=== PATIENT | male | born 1960 | race Two or more races ===

== ENCOUNTER 2022-08-08 23:18 | Inpatient (IN) | payer OTHER ==
[~2022-08-08] VITALS: Ht 165.1 cm; Wt 97.1 kg
--- NOTE | 2022-08-08 23:20 | NUR ---
BLOOD CX, BLOOD WORK COLLECTED AND SENT TO LAB
--- NOTE | 2022-08-08 23:20 | NUR ---
BLOOD CX, BLOOD WORK COLLECTED AND SENT TO LAB
--- NOTE | 2022-08-08 23:22 | NUR ---
Ramon oreilly in [facility] - 08/08/22 at 2342 by BENNIE [id number]
--- NOTE | 2022-08-08 23:23 | NUR ---
[id number]
--- NOTE | 2022-08-08 23:24 | NUR ---
RT pt placed on BIPAP per MD orders on settings IPAP 16, 8 EPAP, back up rate 16, FIO2 50%.
--- NOTE | 2022-08-08 23:25 | NUR ---
COVID, MRSA SWABS COLLECTED AND SENT TO LAB
--- NOTE | 2022-08-08 23:25 | NUR ---
EKG DONE AT BEDSIDE
--- NOTE | 2022-08-08 23:25 | NUR ---
JUANA 37 FROM HOME FOR SEVERE SOB, SATTING AT 77% ON R/A. ARRIVED ON CPAP. RECEIVED 9 NITRO SPRAY PRODUCTION GEAR CUTTER. PATIENT IS ALERT, BHUTANESE SPEAKING. VERY COOPERATIVE. CAME WITH IV CANNULA ON BILATERAL HANDS(LEFT HAND G20, RIGHT HAND G18).
[2022-08-08] MEDS ORDERED: FUROSEMIDE 40 MG/4 ML VIAL IV ONE (23:30)
--- NOTE | 2022-08-08 23:30 | NUR ---
URINE SPECIMEN COLLECTED AND SENT TO LAB
[2022-08-08] MEDS ORDERED: FUROSEMIDE 40 MG/4 ML VIAL ONE (23:31)
[2022-08-08] MEDS ORDERED: LIDOCAINE 2% JEL UROJET 10 ML MM ONE (23:32)
[2022-08-08 23:36] LABS: BASOPHILS # (AUTO) 0.2 K/uL (0.0-0.2); BASOPHILS % (AUTO) 1.2 % (0.0-2.0); EOSINOPHILS % (AUTO) 2.4 % (0.0-6.0); HEMATOCRIT 39 % (39-51); HEMOGLOBIN 12.6 g/dL (13.5-17.5); LYMPHOCYTES # (AUTO) 8.3 K/uL (0.8-4.8); LYMPHOCYTES % (AUTO) 50.1 % (20.0-44.0); MEAN CORPUSCULAR HGB CONC 32 g/dl (31.0-36.0); MEAN CORPUSCULAR VOLUME 88 fL (80-96); MONOCYTES # (AUTO) 0.6 K/uL (0.1-1.30); MONOCYTES % (AUTO) 3.6 % (2.0-12.0); NEUTROPHILS # (AUTO) 7.1 K/uL (1.8-8.9); NEUTROPHILS % (AUTO) 42.7 % (43.0-81.0); PLATELET COUNT (AUTO) 420 K/uL (150-450); RED BLOOD CELL COUNT(AUTO) 4.42 MIL/uL (4.5-6.0); WHITE BLOOD COUNT (AUTO) 16.7 K/uL (4.3-11.0)
--- NOTE | 2022-08-08 23:43 | NUR ---
XR AT BEDSIDE
--- NOTE | 2022-08-08 23:43 | NUR ---
IFC F16 INSERTED, ATTACHED TO UROBAG
[2022-08-09 00:01] LABS: CALCIUM, SERUM 7.9 mg/dL (8.5-10.1); CARBON DIOXIDE 20 mmol/L (21-32); CHLORIDE 102 mmol/L (98-107); CREATININE 3.3 mg/dL (0.6-1.3); POTASSIUM 4.3 mmol/L (3.5-5.1); SODIUM SERUM 134 mmol/L (136-145); UREA NITROGEN, BLOOD 25 mg/dL (7-18)
[2022-08-09 00:04] LABS: ALANINE AMINOTRANSFERASE < 6 U/L (12-78); ALBUMIN 2.7 g/dL (3.4-5.0); ALKALINE PHOSPHATASE 131 U/L (46-116); ASPARTATE AMINOTRANSFERASE 78 U/L (15-37); BILIRUBIN,TOTAL 0.4 mg/dL (0.2-1.0); GLUCOSE 581 mg/dL (74-106); TOTAL PROTEIN, SERUM 6.4 g/dL (6.4-8.2)
--- NOTE | 2022-08-09 00:27 | NUR ---
TWAN Gleason MD MADE AWARE
[2022-08-09] MEDS ORDERED: INSULIN REGULAR, HUMAN 100 UNIT/ML 10 ML VIAL SQ ONE (00:30)
[2022-08-09] MEDS ORDERED: ASPIRIN 325 MG TABLET PO ONE (00:30)
[2022-08-09 00:47] LABS: ABG PCO2 41.7 mmHg (35.0-45.0); ABG PH 7.266 (7.350-7.450); ABG PO2 104.4 mmHg (75.0-100.0); COHb 0.3 % (0.5-1.5); MetHb 0.3 % (0.0-1.5); O2Hb 96.6 % (94.0-97.0); SITE, ABG Right Brachial
--- NOTE | 2022-08-09 02:11 | NUR ---
MISAEL Teague FOR ADMITTING ORDERS TO ICU, AWAITING RESPONSE
--- NOTE | 2022-08-09 03:13 | NUR ---
MESSAGE CARLINE Teague FOR ADMITTING ORDERS FOR ICU, STILL NOT RESPONDING
--- NOTE | 2022-08-09 04:13 | NUR ---
EPIC PAGE DONE FOR CARLINE URBINA FOR ADMITTING ORDER FOR ICU
--- NOTE | 2022-08-09 04:13 | NUR ---
PAGEYolande OSCAR NP TO UPDATE HER ABOUT THE PATIENT'S CONDITION PATIENT IS NO LONGER ON BIPAP.
--- NOTE | 2022-08-09 05:05 | NUR ---
SPOKE TO CARLITOS OSCAR NP AND UPDATED HER REGARDING PATIENT'S CONDITION. PATIENT IS CURRENTLY ON R/A AND SATTING 94-95%. EDSON WILL DOWN GRADE THE PT TO TELE. SITE AUDITOR MADE AWARE.
[2022-08-09] MEDS ORDERED: DEXTROSE 50%-WATER 50 ML DISP.SYRIN IV PRN (05:30)
[2022-08-09] MEDS ORDERED: ONDANSETRON HCL/PF 4 MG/2 ML VIAL IVP PRN (05:30)
[2022-08-09] MEDS ORDERED: ACETAMINOPHEN 325 MG TABLET PO PRN (05:30)
[2022-08-09] MEDS ORDERED: PIPERACILLIN /TAZOBACTAM 3.375 G in IV D5W 50 ML IV SCH (06:00)
[2022-08-09] MEDS ORDERED: PIPERACILLIN /TAZOBACTAM 3.375 G VIAL IV ONE (06:03)
[2022-08-09 06:11] LABS: BASOPHILS # (AUTO) 0.1 K/uL (0.0-0.2); BASOPHILS % (AUTO) 1.1 % (0.0-2.0); EOSINOPHILS % (AUTO) 0.5 % (0.0-6.0); HEMATOCRIT 33 % (39-51); HEMOGLOBIN 11.2 g/dL (13.5-17.5); LYMPHOCYTES # (AUTO) 1.4 K/uL (0.8-4.8); LYMPHOCYTES % (AUTO) 15.1 % (20.0-44.0); MEAN CORPUSCULAR HGB CONC 34 g/dl (31.0-36.0); MEAN CORPUSCULAR VOLUME 83 fL (80-96); MONOCYTES # (AUTO) 0.4 K/uL (0.1-1.30); NEUTROPHILS # (AUTO) 7.1 K/uL (1.8-8.9); NEUTROPHILS % (AUTO) 79.3 % (43.0-81.0); PLATELET COUNT (AUTO) 190 K/uL (150-450); RED BLOOD CELL COUNT(AUTO) 3.96 MIL/uL (4.5-6.0)
[2022-08-09] MEDS: VANCOMYCIN 1 GM in IV D5W 250 ML IV PRN ×2 (06:45→06:53)
[2022-08-09] MEDS ORDERED: VANCOMYCIN 1 GM VIAL ONE (06:49)
[2022-08-09 07:00] LABS: CALCIUM, SERUM 8.5 mg/dL (8.5-10.1); CREATININE 3.1 mg/dL (0.6-1.3); MAGNESIUM 2.1 mg/dL (1.8-2.4); PHOSPHORUS 3.8 mg/dL (2.5-4.9); POTASSIUM 4.4 mmol/L (3.5-5.1)
[2022-08-09 07:15] LABS: BAND % (MANUAL) 2 % (0.0-5.0); LYMPHOCYTES % (MANUAL) 20 % (16-48); MONOCYTES % (MANUAL) 6 % (0-11.0); NEUTROPHILS % (MANUAL) 72 (42-76)
--- NOTE | 2022-08-09 07:55 | NUR ---
REPORT GIVEN TO HAILEE GIBSON. AWAITING TRANSFER TO FLOOR.
[2022-08-09 08:25] VITALS: BP 115/96
--- NOTE | 2022-08-09 08:31 | NUR ---
pt transferred to tele floor with acls protocols in place
[2022-08-09] MEDS ORDERED: HEPARIN SODIUM, PORCINE 5000 UNITS/1 ML VIAL SQ SCH (09:00)
[2022-08-09 09:24] LABS: ABG BASE EXCESS -4.6 mmol/L; ABG PCO2 32.9 mmHg (35.0-45.0); ABG PH 7.392 (7.350-7.450); ABG PO2 68.9 mmHg (75.0-100.0); AaDO2 41.4 mmHg; MetHb 0.1 % (0.0-1.5); O2Hb 93.9 % (94.0-97.0); SITE, ABG Left Radial; VENT MODE, BG RA 21%
--- NOTE | 2022-08-09 10:05 | NUR ---
seen by DR fairchild reviewed ABG with no new order, O2 sat on room air 96%
--- NOTE | 2022-08-09 10:15 | NUR ---
rn notes: left message to DR Young troponin [id number],awaiting for orders
[2022-08-09] MEDS: BLOOD SUGAR DIAGNOSTIC 1 EACH STRIP IN SCH ×4 (10:32→22:03)
[2022-08-09 12:00] VITALS: BP 127/80
[2022-08-09] MEDS: ZOSYN IVPB 3.375 G in IV D5W 50ml IV SCH ×2 (12:12→17:47)
[2022-08-09] MEDS ORDERED: HEPARIN SODIUM, PORCINE 5000 UNITS/1 ML VIAL IV ONE (12:30)
[2022-08-09] MEDS: HEPARIN INFUSION/D5W 500 ML IV PRN (12:30)
[2022-08-09] MEDS: INSULIN REGULAR, HUMAN 100 UNIT/ML 3 ML VIAL SQ PRN ×3 (12:43→23:18)
[2022-08-09 16:00] VITALS: BP 124/79
--- NOTE | 2022-08-09 16:11 | NUR ---
RN NOTE LAB WAS CALLED AND NOTIFIED URINE WAS READY FOR PATTERN HANGER.
[2022-08-09 16:46] LABS: BILIRUBIN,URINE NEGATIVE (NEGATIVE); COLOR,URINE YELLOW (YELLOW); LEUKOCYTE ESTERASE ,URINE NEGATIVE (NEGATIVE); NITRITE, URINE NEGATIVE (NEGATIVE); PH,URINE 6.5 (5.0-8.0); PROTEIN,URINE 3+ mg/dl (NEGATIVE); UGLUCOSE 3+ mg/dL (NEGATIVE); UROBILINOGEN,URINE 0.2 EU/dL (0.2)
[2022-08-09 17:06] LABS: BACTERIA,URINE None seen /HPF (None Seen); RBC,URINE 51-80 /HPF (0-2); SQUAMOUS EPITHELIAL CELL,UR 0-2 /HPF (None Seen); WBC,URINE 0-2 /HPF (0-3)
--- NOTE | 2022-08-09 19:09 | NUR ---
RN CLOSING NOTES PATIENT IN BED, RESTING, NO DISCOMFORT OR SHORTNESS OF BREATH. IV SITE ON RIGHT HAND MARVA 20, PATENT AND FLUSHING WELL, ALL MEDICATIONS WERE GIVEN PRESCRIBED, HEAD OF BED ELEVATED, PATIENT TURNED AND REPOSITIONED EVERY TWO HOURS. OLIVEIRA CATHETER IN PLACE, URINE CLEAR AND YELLOW, NO S/SX OF HYPO/HYPERGLYCEMIA NOTED DURING SHIFT. BED IN LOWEST AND LOCKED POSITION, SIDE RAILS X3 UP, SAFETY MEASURES IMPLEMENTED. WILL ENDORSE TO HOE RUNNER NURSE.
--- NOTE | 2022-08-09 19:40 | NUR ---
MANAGER MARKET RESEARCH OPENING NOTES RECEIVED PATIENT IN BED AWAKE, ALERT AND ORIENTED. A/O X 4. IV SITE ON RIGHT HAND #20G WITH HEPARIN 1600UNIT/HR RUNNING 32ML/HR AND LEFT HAND #20G, SL. HEAD OF BED ELEVATED.OLIVEIRA CATHETER IN PLACE, URINE CLEAR AND YELLOW. SAFETY PRECAUTIONS IN PLACE WITH BED IN LOWEST AND LOCKED POSITION, SIDE RAILS X3 UP. WILL CONTINUE WITH THE PLAN OF CARE.
[2022-08-09 19:56] LABS: CREATININE, URINE 61.2 MG/DL (30.0-125.0)
[2022-08-09 20:00] VITALS: BP 148/86
[2022-08-09] MEDS: CEFTRIAXONE 1 G in IV D5W 50 ML IV SCH (21:56)
[2022-08-09] MEDS: ATORVASTATIN 40 MG TABLET PO SCH (22:03)
[2022-08-10] VITALS: BP 147/99
[2022-08-10 04:00] VITALS: BP 144/92
[2022-08-10] MEDS: HEPARIN INFUSION/D5W 500 ML IV PRN ×2 (04:59→21:06)
[2022-08-10 06:16] LABS: CREATININE 3.1 mg/dL (0.6-1.3); MAGNESIUM 1.9 mg/dL (1.8-2.4); PHOSPHORUS 4.3 mg/dL (2.5-4.9); POTASSIUM 4.3 mmol/L (3.5-5.1)
[2022-08-10 07:06] LABS: BASOPHILS # (AUTO) 0.1 K/uL (0.0-0.2); BASOPHILS % (AUTO) 2.1 % (0.0-2.0); EOSINOPHILS % (AUTO) 2.1 % (0.0-6.0); HEMATOCRIT 32 % (39-51); HEMOGLOBIN 11.2 g/dL (13.5-17.5); LYMPHOCYTES # (AUTO) 1.3 K/uL (0.8-4.8); LYMPHOCYTES % (AUTO) 18.6 % (20.0-44.0); MEAN CORPUSCULAR HGB CONC 35 g/dl (31.0-36.0); MEAN CORPUSCULAR VOLUME 83 fL (80-96); MONOCYTES # (AUTO) 0.4 K/uL (0.1-1.30); MONOCYTES % (AUTO) 5.2 % (2.0-12.0); PLATELET COUNT (AUTO) 160 K/uL (150-450)
[2022-08-10 08:00] VITALS: BP 150/78
[2022-08-10] MEDS: BLOOD SUGAR DIAGNOSTIC 1 EACH STRIP IN SCH ×4 (08:01→22:25)
[2022-08-10] MEDS: INSULIN REGULAR, HUMAN 100 UNIT/ML 3 ML VIAL SQ PRN ×4 (08:03→22:27)
[2022-08-10 12:00] VITALS: BP 138/74
[2022-08-10] MEDS ORDERED: INSU100I34 SQ (12:03)
[2022-08-10] MEDS ORDERED: ERGO500093 PO (12:03)
[2022-08-10] MEDS ORDERED: INSU100I26 SQ (12:03)
[2022-08-10] MEDS ORDERED: ATOR40TA PO (12:03)
[2022-08-10] MEDS ORDERED: SERT25TA5 PO (12:03)
[2022-08-10] MEDS ORDERED: METO-358 PO (12:03)
[2022-08-10] MEDS ORDERED: ASPI-1420 PO (12:03)
--- NOTE | 2022-08-10 12:44 | NUR ---
RN NOTE DAUGHTER WAS CALLED TO INFORM THAT THE PATIENT NEEDS TO SIGN A CONSENT FORM FOR CARDIAC CATH. PATIENT UNDERSTOOD AND SIGNED THE FORM.
[2022-08-10 15:33] LABS: EOSINOPHILS % (MANUAL) 3 % (0-4); LYMPHOCYTES % (MANUAL) 17 % (16-48); MONOCYTES % (MANUAL) 4 % (0-11.0); NEUTROPHILS % (MANUAL) 76 (42-76)
--- NOTE | 2022-08-10 15:58 | NUR ---
RN NOTES HOLD CARDIAC CATH , CONTINUE HEPARIN PER ROVING CARRIER
[2022-08-10 16:00] VITALS: BP 140/72
[2022-08-10] MEDS ORDERED: FUROSEMIDE 40 MG/4 ML VIAL IV ONE (16:00)
[2022-08-10] MEDS: METOPROLOL TARTRATE 25 MG TABLET PO SCH ×2 (17:23→21:38)
[2022-08-10] MEDS: ASPIRIN EC 325 MG TABLET.DR PO SCH (17:25)
[2022-08-10] MEDS ORDERED: VANCOMYCIN 1.25 GM in IV D5W 250 ML IV SCH (19:00)
--- NOTE | 2022-08-10 19:03 | NUR ---
RN CLOSING NOTES PATIENT IN BED ALERT AND ORIENTED X4, NO DISCOMFORT OR SHORTNESS OF BREATH. IV SITE ON RIGHT HAND RUNNING HEPARIN DRIP. L HAND SL MARVA 20 PATENT AND FLUSHING WELL, ALL MEDICATIONS WERE GIVEN PRESCRIBED, HEAD OF BED ELEVATED, PATIENT TURNED AND REPOSITIONED EVERY TWO HOURS. OLIVEIRA CATHETER IN PLACE, URINE CLEAR AND YELLOW, NO S/SX OF HYPO/HYPERGLYCEMIA NOTED DURING SHIFT. BED IN LOWEST AND LOCKED POSITION, SIDE RAILS X3 UP, SAFETY MEASURES IMPLEMENTED. WILL ENDORSE TO ORE STORAGE DRIER NURSE.
[2022-08-10 19:50] LABS: HEMOGLOBIN 11.2 g/dL (13.5-17.5)
[2022-08-10 20:00] VITALS: BP 157/94
--- NOTE | 2022-08-10 20:10 | NUR ---
LANDSCAPE FOREMAN OPENING NOTES RECEIVED PATIENT IN BED AWAKE. PT ALERT AND ORIENTED X 4, ABLE TO MAKE NEEDS KNOWN, MALTESE SPEAKING. NO RESPIRATORY DISTRESS NOTED AT THIS TIME. NO C/O PAIN OR DISCOMFORT. IV SITE ON RIGHT HAND #20G WITH HEPARIN 1600 UNIT/HR RUNNING 32ML/HR AND LEFT HAND #20G, SL. HEAD OF BED ELEVATED.OLIVEIRA CATHETER IN PLACE, URINE CLEAR AND YELLOW. SAFETY PRECAUTIONS IN PLACE: BED LOCKED, IN LOWEST POSITION, SIDE RAILS UP X3. WILL CONTINUE TO MONITOR PT.
--- NOTE | 2022-08-10 21:06 | NUR ---
SCAN BAG OF HEPARIN AT THIS TIME, INCREASED BY 200U ACCORDING TO THE LAST PTT AT 11:15AM THAT WAS NOT FOLLOW, BLOOD DRAW FOR NEXT PTT EARLIER, AWAITING FOR RESULTS.
--- NOTE | 2022-08-10 21:06 | NUR ---
RN NOTE PT'S PTT IS 42.1, INCREASED HEPARIN DRIP TO 200 U/HR PER PROTOCOL. AWAITING FOR LAB RESULT FOR NEW PTT.
[2022-08-10] MEDS: CEFTRIAXONE 1 G in IV D5W 50 ML IV SCH (21:34)
[2022-08-10] MEDS ORDERED: ONDANSETRON HCL/PF 4 MG/2 ML VIAL ONE (21:35)
[2022-08-10] MEDS ORDERED: KETOROLAC TROMETHAMINE INJ 30 MG/ML VIAL ONE (21:36)
[2022-08-10] MEDS ORDERED: MORPHINE SULFATE INJ 4 MG/ML DISP.SYRIN ONE (21:36)
[2022-08-10] MEDS: ATORVASTATIN 40 MG TABLET PO SCH (21:38)
[2022-08-10] MEDS ORDERED: HEPARIN SODIUM, PORCINE 5000 UNITS/1 ML VIAL IV ONE (22:00)
--- NOTE | 2022-08-10 22:15 | NUR ---
RN NOTE NEW PTT RESULT IS 33.8. 6000 U OF HEPARIN BOLUS IVP ADMINISTERED TO PT PER PROTOCOL. HEPARIN INCREASED BY 100U PER PHARMACIST REQUEST. NOW 1900U OF HEPARIN IS INFUSING. NEXT PTT IS ORDERED FOR 0400, IN 6 HRS.
--- NOTE | 2022-08-10 22:15 | NUR ---
RECEIVED RESULTS FROM LAB FOR PTT AT THIS TIME, ACCORDING TO PROTOCOL, GIVE 6000 U BOLUS IVP, AND INCREASED BY 300U, SINCE WE ALREADY INCREASED EARLIER BY 200U WHEN WE SCANNED THE BAG, SPOKE WITH RAHEEL PHARMACIST FROM [place] AND PER HER TO INCREASE 100U MORE, WILL BE INFUSING AT 1900U AND DO PTT IN 6HRS, ORDER NOTED AND CARRIED OUT.
[2022-08-11] VITALS: BP 142/92
[2022-08-11 04:00] VITALS: BP 149/84
[2022-08-11 04:27] LABS: BASOPHILS # (AUTO) 0.1 K/uL (0.0-0.2); BASOPHILS % (AUTO) 1.1 % (0.0-2.0); EOSINOPHILS % (AUTO) 2.7 % (0.0-6.0); HEMATOCRIT 33 % (39-51); HEMOGLOBIN 11.3 g/dL (13.5-17.5); LYMPHOCYTES # (AUTO) 1.4 K/uL (0.8-4.8); LYMPHOCYTES % (AUTO) 20.6 % (20.0-44.0); MEAN CORPUSCULAR HGB CONC 35 g/dl (31.0-36.0); MEAN CORPUSCULAR VOLUME 83 fL (80-96); MONOCYTES # (AUTO) 0.2 K/uL (0.1-1.30); MONOCYTES % (AUTO) 3.5 % (2.0-12.0); NEUTROPHILS # (AUTO) 4.9 K/uL (1.8-8.9); NEUTROPHILS % (AUTO) 72.1 % (43.0-81.0); PLATELET COUNT (AUTO) 171 K/uL (150-450); RED BLOOD CELL COUNT(AUTO) 3.94 MIL/uL (4.5-6.0); WHITE BLOOD COUNT (AUTO) 6.8 K/uL (4.3-11.0)
[2022-08-11 04:40] LABS: CALCIUM, SERUM 7.9 mg/dL (8.5-10.1); MAGNESIUM 1.8 mg/dL (1.8-2.4)
--- NOTE | 2022-08-11 05:40 | NUR ---
RN NOTE RECEIVED PTT LEVEL FROM NYA IN LAB. PT'S PTT IS 96.6. WILL HOLD HEPARIN DRIP FOR 60 MIN, FROM 0540 TO 0640 PER PROTOCOL.
--- NOTE | 2022-08-11 06:40 | NUR ---
RN CLOSING NOTE PT RESTING IN BED. PT'S HEPARIN DRIP HELD FROM 0540 TO 0640. NOW HEPARIN IS DECREASED BY 300 UNITS FROM 1900 TO 1600 PER PROTOCOL D/T PTT LEVEL: 96.6. NEXT PTT ORDERED FOR 1230. PT LEFT IN STABLE CONDITION. NO RESPIRATORY DISTRESS NOTED. IV ACCESS TO RIGHT HAND RUNNING HEPARIN DRIP AT 1600 UNITS/HR, INFUSING WELL. SAFETY MEASURES MAINTAINED. WILL ENDORSE PT TO AM SHIFT NURSE FOR KAT.
--- NOTE | 2022-08-11 07:00 | NUR ---
RN OPENING NOTES RECEIVED PATIENT IN BED AWAKE, ALERT, ORIENTED X 4, ABLE TO MAKE NEEDS KNOWN, SAMI SPEAKING. NO RESPIRATORY DISTRESS NOTED AT THIS TIME. NO COMPLAINS PAIN, DISCOMFORT, DISTRESS. IV SITE ON RIGHT HAND #20G WITH HEPARIN 1600 UNIT/HR RUNNING 32ML/HR AND LEFT HAND #20G, SL. HEAD OF BED ELEVATED.OLIVEIRA CATHETER IN PLACE, URINE CLEAR AND YELLOW. SAFETY PRECAUTIONS IN PLACE, BED LOCKED AND IN LOWEST POSITION, SIDE RAILS UP X3. WILL CONTINUE TO MONITOR.
[2022-08-11] MEDS: BLOOD SUGAR DIAGNOSTIC 1 EACH STRIP IN SCH ×4 (07:42→22:06)
[2022-08-11 08:00] VITALS: BP 146/87
[2022-08-11] MEDS: METOPROLOL TARTRATE 25 MG TABLET PO SCH ×2 (08:25→21:47)
[2022-08-11] MEDS: ASPIRIN EC 325 MG TABLET.DR PO SCH (08:25)
[2022-08-11] MEDS: INSULIN REGULAR, HUMAN 100 UNIT/ML 3 ML VIAL SQ PRN ×4 (08:30→22:07)
[2022-08-11] MEDS: HEPARIN INFUSION/D5W 500 ML IV PRN (11:47)
[2022-08-11 12:00] VITALS: BP 138/80
[2022-08-11 16:00] VITALS: BP 130/86
--- NOTE | 2022-08-11 18:58 | NUR ---
RN CLOSING NOTES PATIENT ALERT, ORIENTED X4, ON NS 2L/MIN 02 AT 96%. AMBULATORY WITH ASSIST, ALL MEDICATIONS GIVEN ORDERED, PATIENT IS ON HEPARIN DRIP AT 1800 UNITS PER HOUR, NEXT PTT AT 1900. NO SOB, NO ACUTE DISTRESS NOTED, CATHETER IN PLACE WITH YELLOW AND CLEAR URINE. CALL LIGHT WITHIN REACH, PATIENT REPOSITIONED EVERY 2 HOURS, SAFETY MEASURES IMPLEMENTED, HEAD OF BED ELEVATED, BED IN LOWEST AND LOCKED POSITION, SIDE RAILS UP X2. WILL GIVE REPORT TO RUBBER BELT SPLICER NURSE FOR CONTINUING OF CARE
--- NOTE | 2022-08-11 19:40 | NUR ---
RN OPENING NOTES RECEIVED PATIENT IN BED, AWAKE, ALERT, ORIENTED X4 AND VERBALLY RESPONSIVE. WOLOF SPEAKING. ON O2 AT 2L/MIN VIA N/C AND PT TOLERATED WELL. FAMILY AT BEDSIDE. AMBULATORY WITH ASSIST. IV ACCESS ON RT HAND #22G AND LT HAND #20G INTACT AND PATENT. NO S/S OF INFILTRATIONS. ON HEPARIN DRIP AT 1800U/HR. NO C/O PAIN OR DISCOMFORT. NO ACUTE DISTRESS. OLIVEIRA CATHETER IN PLACE. DRAINING BY GRAVITY. NOTED YELLOWISH/CLEAR URINE. ALL SAFETY MEASURES IN PLACE. HEAD OF BED ELEVATED, BED IN LOWEST POSITION AND LOCKED. SIDE RAILS UP X2. PLACE CALL LIGHT WITH IN REACH. WILL CONTINUE TO MONITOR
[2022-08-11 20:00] VITALS: BP 146/85
--- NOTE | 2022-08-11 20:35 | NUR ---
RN NOTES: PTT LEVEL 49.4. NO CHANGES. NEXT PTT WILL BE TOMORROW AT 1900
[2022-08-11] MEDS: CEFTRIAXONE 1 G in IV D5W 50 ML IV SCH (20:53)
--- NOTE | 2022-08-11 21:15 | NUR ---
RN NOTES: NOTED PT HAS BLOOD TINGED URINE ON THE OLIVEIRA CATHETER. PT IS ON HEPARIN DRIP. NOTIFIED DR. FUENTES. ORDER- IF BLEEDING INCREASED STOP HEPARIN DRIP AND STAT CBC. NOTED AND CARRIED OUT. WILL CONTINUE TO MONITOR
[2022-08-11] MEDS: ATORVASTATIN 40 MG TABLET PO SCH (21:46)
--- NOTE | 2022-08-11 22:13 | NUR ---
RN NOTES: PT'S BLOOD SUGAR 309. 8 UNITS OF REGULAR INSULIN GIVEN. NO S/S OF HYPER/HYPOGLYCEMIA. WILL CONTINUE TO MONITOR
[2022-08-12] VITALS: BP 154/90
[2022-08-12] MEDS: HEPARIN INFUSION/D5W 500 ML IV PRN ×2 (02:15→16:25)
[2022-08-12 04:00] VITALS: BP 148/83
--- NOTE | 2022-08-12 06:43 | NUR ---
RN CLOSING NOTES PATIENT IN BED, AWAKE, ALERT, ORIENTED X4 AND VERBALLY RESPONSIVE. MALAY SPEAKING. ON O2 AT 2L/MIN VIA N/C AND PT TOLERATED WELL. AMBULATORY WITH ASSIST. IV ACCESS ON RT HAND #22G AND LT HAND #20G INTACT AND PATENT. NO S/S OF INFILTRATIONS. RUNNING HEPARIN DRIP AT 1800U/HR. NO C/O PAIN OR DISCOMFORT. NO ACUTE DISTRESS. OLIVEIRA CATHETER IN PLACE. DRAINING BY GRAVITY. STILL NOTED SLIGHT BLOOD TINGED URINE. WILL CONTINUE TO MONITOR FOR ANY CHANGES. ALL DUE MEDS GIVEN ORDERED. ALL SAFETY MEASURES IN PLACE. HEAD OF BED ELEVATED, BED IN LOWEST POSITION AND LOCKED. SIDE RAILS UP X2. PLACE CALL LIGHT WITH IN REACH. WILL ENDORSE TO MORNING SHIFT NURSE.
[2022-08-12 07:07] LABS: BASOPHILS # (AUTO) 0.1 K/uL (0.0-0.2); BASOPHILS % (AUTO) 0.9 % (0.0-2.0); HEMATOCRIT 33 % (39-51); HEMOGLOBIN 11.3 g/dL (13.5-17.5); LYMPHOCYTES # (AUTO) 1.2 K/uL (0.8-4.8); LYMPHOCYTES % (AUTO) 21.3 % (20.0-44.0); MEAN CORPUSCULAR HGB CONC 34 g/dl (31.0-36.0); MEAN CORPUSCULAR VOLUME 83 fL (80-96); MONOCYTES # (AUTO) 0.2 K/uL (0.1-1.30); MONOCYTES % (AUTO) 3.9 % (2.0-12.0); NEUTROPHILS % (AUTO) 70.9 % (43.0-81.0); PLATELET COUNT (AUTO) 159 K/uL (150-450); RED BLOOD CELL COUNT(AUTO) 3.95 MIL/uL (4.5-6.0); WHITE BLOOD COUNT (AUTO) 5.7 K/uL (4.3-11.0)
--- NOTE | 2022-08-12 07:15 | NUR ---
RN OPENING NOTES RECEIVED PATIENT IN BED, AWAKE, ALERT, ORIENTED X4 AND VERBALLY RESPONSIVE. [place] SPEAKING. ON O2 AT 2L/MIN VIA N/C AND PT TOLERATED WELL. FAMILY AT BEDSIDE. AMBULATORY WITH ASSIST. IV ACCESS ON RT HAND #22G AND LT HAND #20G INTACT AND PATENT. NO S/S OF INFILTRATIONS. ON HEPARIN DRIP AT 1800U/HR. NO C/O PAIN OR DISCOMFORT. NO ACUTE DISTRESS. OLIVEIRA CATHETER IN PLACE. DRAINING BY GRAVITY. NOTED YELLOWISH/CLEAR URINE. ALL SAFETY MEASURES IN PLACE. HEAD OF BED ELEVATED, BED IN LOWEST POSITION AND LOCKED. SIDE RAILS UP X2. PLACE CALL LIGHT WITH IN REACH. WILL CONTINUE TO MONITOR
[2022-08-12 07:30] LABS: CALCIUM, SERUM 7.9 mg/dL (8.5-10.1); CREATININE 2.9 mg/dL (0.6-1.3); MAGNESIUM 1.9 mg/dL (1.8-2.4); PHOSPHORUS 4.7 mg/dL (2.5-4.9); POTASSIUM 3.9 mmol/L (3.5-5.1)
[2022-08-12] MEDS: BLOOD SUGAR DIAGNOSTIC 1 EACH STRIP IN SCH ×4 (07:47→22:19)
[2022-08-12 08:00] VITALS: BP_SYST 119; BP_SYST 127; BP_DIAS 74; BP_DIAS 86
[2022-08-12] MEDS ORDERED: INSULIN GLARGINE,BASAGLAR 100 UNIT/ML INSULN.PEN SQ SCH (09:00)
[2022-08-12] MEDS: ASPIRIN EC 325 MG TABLET.DR PO SCH (09:00)
[2022-08-12] MEDS: ATORVASTATIN 40 MG TABLET PO SCH (09:00)
[2022-08-12] MEDS ORDERED: ERGOCALCIFEROL (VITAMIN D 2) 50,000 UNIT CAPSULE PO SCH (09:00)
[2022-08-12] MEDS: METOPROLOL TARTRATE 25 MG TABLET PO SCH ×2 (09:01→21:36)
[2022-08-12] MEDS: SERTRALINE HCL 25 MG TABLET PO SCH (09:08)
--- NOTE | 2022-08-12 09:15 | NUR ---
RN NOTE ASPIRIN 325 MG WAS SCANNED BUT AFTER VERIFIED WITH DR PLEITEZ , RETURNED BUT ADMINISTERED TO THE PATIENT ASPIRIN 81 MG
[2022-08-12] MEDS: ASPIRIN EC 81 MG TABLET.DR PO SCH (10:58)
[2022-08-12] MEDS: INSULIN REGULAR, HUMAN 100 UNIT/ML 3 ML VIAL SQ PRN ×3 (11:43→21:56)
[2022-08-12 12:07] VITALS: BP 153/85
[2022-08-12 16:37] VITALS: BP 135/94
--- NOTE | 2022-08-12 18:32 | NUR ---
RN CLOSING NOTES PATIENT IN BED, AWAKE, ALERT, ORIENTED X4 AND VERBALLY RESPONSIVE. SAMI SPEAKING. ON O2 AT 2L/MIN VIA N/C AND PT TOLERATED WELL. AMBULATORY WITH ASSIST. IV ACCESS ON RT HAND #22G AND LT HAND #20G INTACT AND PATENT. NO S/S OF INFILTRATIONS. RUNNING HEPARIN DRIP AT 1800U/HR. NO C/O PAIN OR DISCOMFORT. NO ACUTE DISTRESS. OLIVEIRA CATHETER IN PLACE. DRAINING BY GRAVITY. STILL NOTED SLIGHT BLOOD TINGED URINE. WILL CONTINUE TO MONITOR FOR ANY CHANGES. ALL DUE MEDS GIVEN ORDERED. ALL SAFETY MEASURES IN PLACE. HEAD OF BED ELEVATED, BED IN LOWEST POSITION AND LOCKED. SIDE RAILS UP X2. PLACE CALL LIGHT WITH IN REACH. WILL ENDORSE TO GOVERNMENT SERVICE EXECUTIVE NURSE.
--- NOTE | 2022-08-12 19:58 | NUR ---
RN OPENING NOTES; RECEIVED PATIENT IN BED AAOX4 ESTONIAN SPEAKING WITH A LITTLE FRISIAN,ON O2 AT 2L/MIN VIA N/C AND PT TOLERATED WELL SATING 98%,IV ACCESS ON RT HAND #22G AND LT HAND #20G INTACT AND PATENT. NO S/S OF INFILTRATIONS. ON HEPARIN DRIP AT 1800U/HR. NO C/O PAIN OR DISCOMFORT. OLIVEIRA CATHETER IN PLACE DRAINING BLD THIN URINE NOTED,ALL SAFETY MEASURES IN PLACE. CALL LIGHT WITH IN REACH. WILL CONTINUE TO MONITOR
[2022-08-12 20:00] VITALS: BP 148/88
[2022-08-12] MEDS: INSULIN GLARGINE, 100 UNIT/ML CARTRIDGE SQ SCH (21:50)
[2022-08-13] VITALS: BP 148/90
[2022-08-13 04:00] VITALS: BP 143/81
--- NOTE | 2022-08-13 06:17 | NUR ---
RN CLOSING NOTES; PATIENT IN BED AAOX4 EQUATORIAL GUINEAN SPEAKING WITH A LITTLE MOLDOVAN,ON O2 AT 2L VIA NC CHASE WELL SATING 97.4%,NO SOB/DISTRESS NOTED,NO COMPLAIN OF PAIN/DISCOMFORT ,DUE MEDS GIVEN ORDER,ALL NEEDS ATTENDED,IV ACCESS ON RT HAND #22G AND LT HAND #20G INTACT AND PATENT. ON HEPARIN DRIP AT 1800U/HR.PT BRP WITH STEADY GAIT,OLIVEIRA CATHETER IN PLACE DRAINING BLD THIN URINE NOTED.OUT PUT 1200ML.,ALL SAFETY MEASURES IN PLACE. CALL LIGHT WITH IN REACH. WILL ENDORSE TO NEXT SHIFT.
--- NOTE | 2022-08-13 07:15 | NUR ---
RN OPENING NOTES; RECEIVED PATIENT IN BED AAOX4 DIVEHI SPEAKING WITH A LITTLE BULGARIAN,ON O2 AT 2L/MIN VIA N/C AND PT TOLERATED WELL SATING 98%,IV ACCESS ON RT HAND #22G AND LT HAND #20G INTACT AND PATENT. NO S/S OF INFILTRATIONS. HEPARIN DRIP ON HOLD SINCE 7 AM TILL PTT RESULT WILL BE READY .PATIENT IS ON NPO EXCEPT MEDS DUE TO SCHEDULED FOR HEART CATHETERIZATION TODAY . NO C/O PAIN OR DISCOMFORT. OLIVEIRA CATHETER IN PLACE DRAINING BLD THIN URINE NOTED,ALL SAFETY MEASURES IN PLACE. CALL LIGHT WITH IN REACH. WILL CONTINUE TO MONITOR
[2022-08-13 07:38] LABS: CREATININE 2.9 mg/dL (0.6-1.3)
[2022-08-13 08:00] VITALS: BP 146/86
[2022-08-13] MEDS: IV 1/2NS 1000 ML 1,000 ML IV PRN (08:05)
[2022-08-13] MEDS: METOPROLOL TARTRATE 25 MG TABLET PO SCH ×2 (08:05→21:29)
[2022-08-13] MEDS: ASPIRIN EC 81 MG TABLET.DR PO SCH (08:06)
[2022-08-13] MEDS: ATORVASTATIN 40 MG TABLET PO SCH (08:06)
[2022-08-13] MEDS: SERTRALINE HCL 25 MG TABLET PO SCH (08:06)
[2022-08-13] MEDS: BLOOD SUGAR DIAGNOSTIC 1 EACH STRIP IN SCH ×4 (08:12→21:31)
[2022-08-13] MEDS: INSULIN GLARGINE, 100 UNIT/ML CARTRIDGE SQ SCH ×2 (08:21→21:32)
--- NOTE | 2022-08-13 08:22 | NUR ---
RN NOTE LANTUS WAS HOLD DUE TO PATIENT IS NPO R/T SCEDULED SURGERY , CHARGE NURSE PASCUAL , WILL RECHECK BS AT 12 NOON
[2022-08-13 12:08] VITALS: BP 142/65
--- NOTE | 2022-08-13 12:30 | NUR ---
RN NOTE PATIENT TAKEN TO THE OR
[2022-08-13] MEDS ORDERED: IODIXANOL 150 ML IV ONE (12:56)
[2022-08-13] MEDS ORDERED: IV NS 0.9% 1,000 ML ONE (12:56)
[2022-08-13] MEDS ORDERED: NITROGLYCERIN IN 5 % DEXTROSE 250 ML IV ONE (12:57)
[2022-08-13] MEDS ORDERED: LIDOCAINE HCL/PF 1% 30 ML SDV ONE (12:57)
[2022-08-13] MEDS ORDERED: FENTANYL PF 100MCG/2ML AMPUL ONE (13:24)
[2022-08-13] MEDS ORDERED: MIDAZOLAM HCL 2 MG/2ML VIAL ONE (13:25)
--- NOTE | 2022-08-13 15:40 | NUR ---
RN NOTE 5 CC OF THE AIR WAS PULLED OUT OF THE BRACELET S/P LEFT HEART CATHETERIZATION , PATIENT TOLARRATED WELL , NO S OF BLEEDING
[2022-08-13 16:00] VITALS: BP 140/80
--- NOTE | 2022-08-13 16:05 | NUR ---
RN NOTE 5 CC OF THE AIR WS REMOVED FROM THE BRACLET S/P LEFT HEART CATHETERIZATION , PATIENT TOLARAYED WELL , NO S OF BLEEDING.
--- NOTE | 2022-08-13 16:22 | NUR ---
RN NOTE 4 CC OF AIR WAS REMOVED . THERE STARTED A SMALL BLEEDING , 4 CC OF AIR RETURNED BACK
[2022-08-13] MEDS: INSULIN REGULAR, HUMAN 100 UNIT/ML 3 ML VIAL SQ PRN ×2 (16:31→21:33)
--- NOTE | 2022-08-13 18:24 | NUR ---
RN CLOSING NOTES; PATIENT IN BED AAOX4 SOMALI SPEAKING WITH A LITTLE THAI,ON O2 AT 2L VIA NC CHASE WELL SATING 97.4%,NO SOB/DISTRESS NOTED,NO COMPLAIN OF PAIN/DISCOMFORT ,DUE MEDS GIVEN ORDER,ALL NEEDS ATTENDED,IV ACCESS ON RT HAND #22G AND LT HAND #20G INTACT AND PATENT. PATIENT UNDERWENT ANGIOGRAM TODAY .TOLERATED WELL OLIVEIRA CATHETER IN PLACE DRAINING YELLOW URINE NOTED.OUT PUT 1100ML. ALL SAFETY MEASURES IN PLACE. CALL LIGHT WITH IN REACH. WILL ENDORSE TO NEXT SHIFT.
--- NOTE | 2022-08-13 19:10 | NUR ---
RN NOTES RECEIVED PT FOR CONTINUITY OF CARE. PATIENT A/OX4; GERMAN SPEAKING AND LIMITED MALTESE IN NO S/SX OF ACUTE DISTRESS AT THIS TIME; CURRENTLY ON 2L OF 02 VIA NC; WITH 02 SAT >95% AT THIS TIME. WITH IV ACCESS ON R HAND#22 AND L HAND 20 PATENT, INTACT AND FLUSHING WELL. WITH RUNNING IV FLUID ORDERED. WILL ENSURE SAFETY MEASURES WITHIN THE SHIFT. PATIENT BED ALARM IS ON. HEAD OF BED ELEVATED. BED IS LOCKED, IN LOWEST POSITION AND SIDE RAILS UP. CALL LIGHT WITHIN REACH OF THE PATIENT. WILL CONTINUE TO MONITOR AND REASSESS FOR ANY CHANGES AND WILL CARRY OUT ANY ONGOING AND ACTIVE MD ORDER.
[2022-08-13 20:00] VITALS: BP 144/88
[2022-08-14] VITALS (7 sets, daily range): BP systolic 130–165; BP diastolic 75–93
[2022-08-14] MEDS: IV 1/2NS 1000 ML 1,000 ML IV PRN ×2 (01:07→14:57)
--- NOTE | 2022-08-14 04:00 | NUR ---
RN NOTES PATIENT REMAINED TO BE IN NO SIGNS OF ACUTE RESPIRATORY DISTRESS, SAFE ENVIRONMENT MAINTAINED FOR PT. AM PATIENT CARE ASSISTANCE RENDERED. WILL CONTINUE TO MONITOR AND REASSESS FOR ANY CHANGES THROUGHOUT THE SHIFT.
--- NOTE | 2022-08-14 06:29 | NUR ---
RN NOTE PATIENT REMAINS IN ROOM IN NO SIGNS OF RESPIRATORY DISTRESS, PATIENT STILL ON 2L OF O2 VIA NC;TOLERATING WELL SATURATING @ >95% SP02. SAFETY MEASURES IMPLEMENTED, BED IN LOWEST POSITION, LOCKED, SIDE RAILS UP, CALL LIGHT WITHIN REACH. ALL NEEDS AND ORDERS ADDRESSED DURING THE SHIFT. IV ACCESS MAINTAINED INTACT, SECURED AND FLUSHING WELL. IV RUNNING ORDERED. ALL DUE MEDS GIVEN ORDERED & SCHEDULED ; PATIENT TOLERATED WELL. PATIENT KEPT CLEAN AND COMFORTABLE WITHIN THE SHIFT. PATIENT ENDORSED TO INCOMING SHIFT RN WITH STABLE VITAL SIGN AND FOR CONTINUITY OF CARE.
[2022-08-14] MEDS: BLOOD SUGAR DIAGNOSTIC 1 EACH STRIP IN SCH ×4 (08:23→21:39)
[2022-08-14] MEDS: SERTRALINE HCL 25 MG TABLET PO SCH (08:29)
[2022-08-14] MEDS: METOPROLOL TARTRATE 25 MG TABLET PO SCH ×2 (08:29→21:36)
[2022-08-14] MEDS: ATORVASTATIN 40 MG TABLET PO SCH (08:29)
[2022-08-14] MEDS: ASPIRIN EC 81 MG TABLET.DR PO SCH (08:29)
[2022-08-14] MEDS: INSULIN REGULAR, HUMAN 100 UNIT/ML 3 ML VIAL SQ PRN ×4 (08:32→21:42)
[2022-08-14] MEDS: INSULIN GLARGINE, 100 UNIT/ML CARTRIDGE SQ SCH ×2 (08:33→21:43)
[2022-08-14 09:53] LABS: BASOPHILS # (AUTO) 0.1 K/uL (0.0-0.2); BASOPHILS % (AUTO) 1.4 % (0.0-2.0); EOSINOPHILS % (AUTO) 3.4 % (0.0-6.0); HEMATOCRIT 33 % (39-51); HEMOGLOBIN 10.9 g/dL (13.5-17.5); LYMPHOCYTES # (AUTO) 0.9 K/uL (0.8-4.8); LYMPHOCYTES % (AUTO) 16.5 % (20.0-44.0); MEAN CORPUSCULAR HGB CONC 34 g/dl (31.0-36.0); MEAN CORPUSCULAR VOLUME 84 fL (80-96); MONOCYTES # (AUTO) 0.3 K/uL (0.1-1.30); MONOCYTES % (AUTO) 4.6 % (2.0-12.0); NEUTROPHILS # (AUTO) 4.2 K/uL (1.8-8.9); NEUTROPHILS % (AUTO) 74.1 % (43.0-81.0); PLATELET COUNT (AUTO) 149 K/uL (150-450); RED BLOOD CELL COUNT(AUTO) 3.87 MIL/uL (4.5-6.0); WHITE BLOOD COUNT (AUTO) 5.6 K/uL (4.3-11.0)
[2022-08-14 10:14] LABS: ALBUMIN 2.5 g/dL (3.4-5.0); BILIRUBIN,TOTAL 0.3 mg/dL (0.2-1.0); CALCIUM, SERUM 8.4 mg/dL (8.5-10.1); CREATININE 2.8 mg/dL (0.6-1.3); PHOSPHORUS 4.4 mg/dL (2.5-4.9); POTASSIUM 4.4 mmol/L (3.5-5.1); TOTAL PROTEIN, SERUM 5.9 g/dL (6.4-8.2)
--- NOTE | 2022-08-14 11:51 | NUR ---
PATIENT IS ASKING TO LEAVE THE HOSPITAL TODAY, I TOLD HIM THAT I HAVE TO NOTIFY DR. PLEITEZ, SO I PAGES DR. PLEITEZ VIA [employer]; DR PLEITEZ STATED THAT PATIENT NEEDS TO HAVE REVASCULARIZATION BY PASS OPEN SURGERY, I AM GOING TO EXPLAIN THIS TO PATIENT AND IF HE STILL WANTS TO GO HOME DR. PLEITEZ SAID HE CAN LEAVE AMA.
--- NOTE | 2022-08-14 12:30 | NUR ---
AFTER EXPLAINATION TO PATIENT THAT HE NEEDS TO STAY AND WILL HAVE A PROCEDURE BY PASS, AND HE AGREED TO STAY AND NOT LEAVE AMA
--- NOTE | 2022-08-14 18:52 | NUR ---
RN CLOSING NOTES PATIENT S/O X4 JAPANESE SPEAKING, ON NC 2 LITERS O2 SAT BETWEEN 92-96%, NO SOB OR DISTRESS NOTED, ALL DUE MEDS GIVEN, PATIENT HAS OLIVEIRA, AND BRP FOR BOWEL MOVEMENTS. PATIENT IS AMBULATORY. ALL SAFETY PRECAUTIONS IMPLEMENTED, WILL ENDORSE THE PATIENT TO THE CHAIN SAW DRIVER NURSE FOR KAT.
--- NOTE | 2022-08-14 19:12 | NUR ---
RN NOTE RECEIVED PT FOR CONTINUITY OF CARE. PATIENT A/OX4; WOLOF SPEAKING IN NO S/SX OF ACUTE DISTRESS AT THIS TIME; CURRENTLY ON 2L OF 02 VIA NC; WITH 02 SAT >95% AT THIS TIME. WITH IV ACCESS ON R HAND#22 AND L HAND 20 PATENT, INTACT AND FLUSHING WELL. WITH RUNNING IV FLUID ORDERED. WILL ENSURE SAFETY MEASURES WITHIN THE SHIFT. PATIENT BED ALARM IS ON. HEAD OF BED ELEVATED. BED IS LOCKED, IN LOWEST POSITION AND SIDE RAILS UP. CALL LIGHT WITHIN REACH OF THE PATIENT. WILL CONTINUE TO MONITOR AND REASSESS FOR ANY CHANGES AND WILL CARRY OUT ANY ONGOING AND ACTIVE MD ORDER.
[2022-08-15] VITALS: BP 132/65
[2022-08-15 04:00] VITALS: BP 135/75
--- NOTE | 2022-08-15 04:00 | NUR ---
RN NOTE PATIENT REMAINED TO BE IN NO SIGNS OF ACUTE RESPIRATORY DISTRESS , SAFE ENVIRONMENT MAINTAINED FOR PT. AM PATIENT CARE ASSISTANCE RENDERED. WILL CONTINUE TO MONITOR AND REASSESS FOR ANY CHANGES THROUGHOUT THE SHIFT.
[2022-08-15 06:01] LABS: BASOPHILS # (AUTO) 0.1 K/uL (0.0-0.2); BASOPHILS % (AUTO) 0.9 % (0.0-2.0); EOSINOPHILS % (AUTO) 3.6 % (0.0-6.0); HEMATOCRIT 33 % (39-51); HEMOGLOBIN 10.6 g/dL (13.5-17.5); LYMPHOCYTES # (AUTO) 1.2 K/uL (0.8-4.8); LYMPHOCYTES % (AUTO) 20.3 % (20.0-44.0); MEAN CORPUSCULAR HGB CONC 33 g/dl (31.0-36.0); MEAN CORPUSCULAR VOLUME 85 fL (80-96); MONOCYTES # (AUTO) 0.3 K/uL (0.1-1.30); MONOCYTES % (AUTO) 5.1 % (2.0-12.0); NEUTROPHILS # (AUTO) 4.2 K/uL (1.8-8.9); NEUTROPHILS % (AUTO) 70.1 % (43.0-81.0); PLATELET COUNT (AUTO) 151 K/uL (150-450); RED BLOOD CELL COUNT(AUTO) 3.85 MIL/uL (4.5-6.0); WHITE BLOOD COUNT (AUTO) 5.9 K/uL (4.3-11.0)
[2022-08-15 06:24] LABS: ALBUMIN 2.5 g/dL (3.4-5.0); BILIRUBIN,TOTAL 0.2 mg/dL (0.2-1.0); CALCIUM, SERUM 8.4 mg/dL (8.5-10.1); CREATININE 2.7 mg/dL (0.6-1.3); MAGNESIUM 1.9 mg/dL (1.8-2.4); PHOSPHORUS 4.5 mg/dL (2.5-4.9); POTASSIUM 4.1 mmol/L (3.5-5.1); TOTAL PROTEIN, SERUM 5.8 g/dL (6.4-8.2)
[2022-08-15 08:00] VITALS: BP 122/82
--- NOTE | 2022-08-15 08:01 | NUR ---
JAILER CHIEF NOTE PATIENT IN ROOM ALERT ORIENTED, IN NO SIGNS OF RESPIRATORY DISTRESS, PATIENT STILL ON 2L OF O2 VIA NC;TOLERATING WELL. SAFETY MEASURES IMPLEMENTED, BED IN LOWEST POSITION, LOCKED, SIDE RAILS UP, CALL LIGHT WITHIN REACH. ALL NEEDS ATTENDED. IV ACCESS MAINTAINED INTACT, SECURED AND FLUSHING WELL. IV RUNNING ORDERED, PATIENT TOLERATED WELL. PATIENT KEPT CLEAN AND COMFORTABLE WITHIN. PATIENT HAVING BREAKFAST WITH OLIVEIRA CATH TO GRAVITY WITH YELLOW COLOR URINE
[2022-08-15] MEDS: ASPIRIN EC 81 MG TABLET.DR PO SCH (08:27)
[2022-08-15] MEDS: ATORVASTATIN 40 MG TABLET PO SCH (08:29)
[2022-08-15] MEDS: SERTRALINE HCL 25 MG TABLET PO SCH (08:29)
[2022-08-15] MEDS: INSULIN GLARGINE, 100 UNIT/ML CARTRIDGE SQ SCH ×2 (08:31→22:06)
[2022-08-15] MEDS: INSULIN REGULAR, HUMAN 100 UNIT/ML 3 ML VIAL SQ PRN ×4 (08:31→22:04)
[2022-08-15] MEDS: BLOOD SUGAR DIAGNOSTIC 1 EACH STRIP IN SCH ×4 (08:37→22:01)
[2022-08-15] MEDS ORDERED: METOPROLOL TARTRATE 25 MG TABLET PO SCH ×2 (09:00→21:00)
--- NOTE | 2022-08-15 09:58 | NUR ---
\ wireless telegrapher note Lopressor 25 mg po was given at 825 as ordered pharmacy notified that will give next dose at 2099 will f\u
--- NOTE | 2022-08-15 10:18 | NUR ---
telephone coin box collector note [place] police crime scene technician ok to place on o21l will monitor saturation above 94% will monitor
[2022-08-15 12:00] VITALS: BP 142/87
--- NOTE | 2022-08-15 13:00 | NUR ---
teletype telegrapher note having lunch able to eat self, not in distress
[2022-08-15] MEDS: IV 1/2NS 1000 ML 1,000 ML IV PRN (13:24)
--- NOTE | 2022-08-15 13:41 | NUR ---
PROGRAM DIRECTOR SUBSTANCE ABUSE NOTE SEEN BY DR ALMARAZ AT BEDSIDE FOR POSSIBLE S OPEN HEART SURGERY AT THE [facility], SPOKE WITH [employer]ITIES AND MAINTENANCE SUPERVISOR , AND INFORMED ABOUT THIS, STATED THAT WILL START WORK ON TRANSFER, WILL F\U
[2022-08-15 16:00] VITALS: BP 160/90
--- NOTE | 2022-08-15 16:36 | NUR ---
telegraph messenger note per field nurse case manager possible to tranfert to [facility] ordered images from radiology also reported to dr gamboa that bp 160/60 on Lopressor qx12 hour ,next dose ar 9pm ordered to give now dose order carried out Addendum: 08/15/22 at 1743 by KRISHNA LARSON RN per case manage possible to transfer to [facility] for possible heart surgery with dr borrego
[2022-08-15] MEDS: METOPROLOL TARTRATE 25 MG TABLET PO SCH ×2 (17:08→21:00)
--- NOTE | 2022-08-15 18:19 | NUR ---
TRANSIT MECHANIC NOTE PATIENT IN BED , ALERT ORIENTED , ON 1L NC ,NO SOB NOTED AT THIS TIME ,SATURATION 97& , ON TELE MONITOR ST HR 87, ABLE TO EAT SELF DINNER, RT AND LT HAND HL INTACT AND FLUSHED WELL , WITH POSSIBLE TO TRANSFER TO [facility] FOR [facility] HEART SURGERY , BED IN LOWEST AND LOCKED POSITION , CALL LIGHT WITHIN REACH , SAFETY MEASURE IMPLEMENTED, WILL CONT TO MONITOR CLOSELY
--- NOTE | 2022-08-15 19:10 | NUR ---
STATIONARY ENGINEER opening note Resident resting in bed, awake, A&Ox4, family member at bed side, pt afebrile, on o2 via NC, breathing even and unlabored, 0 s/s of acute distress, hardy cath patent and draining well, clear yellow urine noted, L hand 20G and R hand 20G IV intact and patent, 1/2 NS @ 60 cc/hr infusing well, SR on tele monitor, all safety measures in place, will continue to monitor
[2022-08-15 20:00] VITALS: BP 144/84
--- NOTE | 2022-08-15 21:30 | NUR ---
BOOKKEEPING MANAGER note Held Lopressor per Md order to give early, was given at 1500 by AM nurse
[2022-08-16] VITALS: BP 140/71
--- NOTE | 2022-08-16 01:54 | NUR ---
WAX ENGRAVER NOTE TALKED WITH NORA CVU CHARGE NURSE AT [facility] REGARDING PT TRANSFER TO THEIR UNITS TOMORROW. WHICH WE HAVE NO ORDER YET. KEPT PT NPO JUST IN CASE. WILL FOLLOW UP IN AM. NURSING AUTOMOTIVE SALES REPRESENTATIVE ALSO MADE AWARE. INFORMED GRIFFIN BARRETO TO INFORM DAY SHIFT NURSE TO FOLLOW UP.
[2022-08-16 04:00] VITALS: BP 137/71
[2022-08-16] MEDS: IV 1/2NS 1000 ML 1,000 ML IV PRN (06:02)
--- NOTE | 2022-08-16 06:45 | NUR ---
OTR DRIVER closing note Resident resting in bed, awake, A&Ox4, family member at bed side, pt afebrile, on o2 via NC, breathing even and unlabored, 0 s/s of acute distress, hardy cath patent and draining well, clear yellow urine noted, L hand 20G and R hand 20G IV intact and patent, 1/2 NS @ 60 cc/hr infusing well, SR on tele monitor, all due meds given per MD orders tolerated well, all basic needs met and anticipated, all safety measures in place, will continue to monitor
--- NOTE | 2022-08-16 07:30 | NUR ---
FORESTRY PILOT AM NOTE PATIENT IN ROOM ALERT ORIENTED X 4, ON 2L O2 NASAL CANULA, O2 SAT 98%, RESPIRATION UNLABORED, NO SOB, NO DISTRESS, SR HR 84, DENIES PAIN/DISCOMFORT, IV ACCESS ON LEFT HAND G22,WITH 1/2 NS AT 60 ML/HR INFUSING WELL, SITE CLEAR. OLIVEIRA CATH IN PLACE DRAINING YELLOW CLEAR URINE, ADEQUATE AMOUNT. SKIN INTACT. CCHO 60 GMS DIET BUT NPO FOR NOW. POC DISCUSSED. VERBALIZED UNDERSTANDING. SAFETY MEASURES IMPLEMENTED, BED IN LOWEST POSITION, LOCKED, SIDE RAILS UP, CALL LIGHT WITHIN REACH. WILL CONT TO MONITOR. PATIENT RECEIVED NPO FOR POSSIBLE TRANSFER TO [facility] FOR CABG. WAITING FOR CASE MANAGEMENT AND AUTHORIZATION.
[2022-08-16] MEDS: BLOOD SUGAR DIAGNOSTIC 1 EACH STRIP IN SCH ×4 (07:57→21:51)
[2022-08-16 08:00] VITALS: BP 137/71
[2022-08-16] MEDS: INSULIN GLARGINE, 100 UNIT/ML CARTRIDGE SQ SCH ×2 (09:00→21:58)
[2022-08-16] MEDS: ASPIRIN EC 81 MG TABLET.DR PO SCH (09:00)
[2022-08-16] MEDS: ATORVASTATIN 40 MG TABLET PO SCH (09:00)
[2022-08-16] MEDS: METOPROLOL TARTRATE 25 MG TABLET PO SCH ×2 (09:00→21:51)
[2022-08-16] MEDS: SERTRALINE HCL 25 MG TABLET PO SCH (09:00)
[2022-08-16 09:07] LABS: *HGBFRC HEMOGLOBIN A2 2.4 % (1.8-3.2)
--- NOTE | 2022-08-16 11:17 | NUR ---
RN NOTES SPOKE WITH DR. MERINO RE PATIENT ON NPO SINCE LAST NIGHT FOR POSSIBLE CABG TO [facility]. RECEIVED INSTRUCTION FROM CHARGE NURSE TO KEEP PATIENT NPO JUST IN CASE. PER [employer]SHIA [employer]BEST[employer] CEMENT SHEET SUPERVISOR, THEY ARE STILL WORKING WITH AUTHORIZATION AT THIS TIME. WILL RESUME DIET OF PATIENT. OK TO DC IV FLUID FOR NOW. PATIENT CAN DRINK. OK NOT TO CHANGE IV SITE.
[2022-08-16 12:00] VITALS: BP 137/71
--- NOTE | 2022-08-16 12:30 | NUR ---
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 SR on tele monitor, all safety measures in place, will continue to monitor
[2022-08-16 16:00] VITALS: BP 137/71
[2022-08-16] MEDS: INSULIN REGULAR, HUMAN 100 UNIT/ML 3 ML VIAL SQ PRN ×2 (17:12→22:12)
--- NOTE | 2022-08-16 18:30 | NUR ---
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
--- NOTE | 2022-08-16 19:39 | NUR ---
RN Opening note Patient received resting in bed, awake, A&Ox4, on o2 via NC, breathing even and unlabored, no s/s of acute distress, hardy cath patent and draining well, clear yellow urine noted, L hand 20G and R hand 20G IV intact. SR on tele monitor, all needs met, safety measures in place, hob elevated for safety side rails x3 up . call light within reach. table within reach. pt pending transfer to [facility] for possible cabg.
[2022-08-16 20:46] VITALS: BP 142/82
[2022-08-17 00:33] VITALS: BP 148/84
[2022-08-17 05:21] VITALS: BP 147/84
--- NOTE | 2022-08-17 06:33 | NUR ---
RN Closing note Patient resting in bed, awake, A&Ox4, on o2 via NC, breathing even and unlabored, no s/s of acute distress, hardy cath patent and draining well, clear yellow urine noted, L hand 20G and R hand 20G IV intact. SR on tele monitor, all needs met, safety measures in place, hob elevated for safety side rails x3 up . call light within reach. table within reach. pt pending transfer to [facility] for possible cabg. received call from Bernabe Mathew for update on pts condition no trasfer available at this itme just obtaining more information on pt. will endorse care to day shit nurse.
[2022-08-17 08:00] VITALS: BP 123/82
--- NOTE | 2022-08-17 08:07 | NUR ---
INSULATION ENGINEMAN OPENING NOTE PT IN BED. ALERT AND ORIENTED X4.VERBALLY RESPONSIVE ABLE TO MAKE NEEDS KNOWN. ON 2 L NASAL CANNULA TOLERATING ABOVE 92%. PT ON TELE MONITOR SR 84. PT HAS RIGHT HAND 20 GUAGE. IV PATENT, INTACT AND FLUSHING WELL. ALL SAFETY MEASURES IN PLACE. CALL LIGHT WITHIN [facility].BED LOCKED AT LOWEST POSITION. SIDE RAILS UP X2. BED ALARM ON
[2022-08-17] MEDS: BLOOD SUGAR DIAGNOSTIC 1 EACH STRIP IN SCH ×2 (08:23→12:25)
[2022-08-17] MEDS: ASPIRIN EC 81 MG TABLET.DR PO SCH (08:31)
[2022-08-17] MEDS: ATORVASTATIN 40 MG TABLET PO SCH (08:31)
[2022-08-17] MEDS: SERTRALINE HCL 25 MG TABLET PO SCH (08:31)
[2022-08-17] MEDS: METOPROLOL TARTRATE 25 MG TABLET PO SCH (08:40)
[2022-08-17] MEDS: INSULIN GLARGINE, 100 UNIT/ML CARTRIDGE SQ SCH (10:46)
[2022-08-17 12:00] VITALS: BP 138/80
[2022-08-17 12:26] LABS: CALCIUM, SERUM 8.5 mg/dL (8.5-10.1); CREATININE 2.7 mg/dL (0.6-1.3); POTASSIUM 4.8 mmol/L (3.5-5.1)
[2022-08-17] MEDS: INSULIN REGULAR, HUMAN 100 UNIT/ML 3 ML VIAL SQ PRN (12:27)
[2022-08-17 16:00] VITALS: BP 145/75
--- NOTE | 2022-08-17 18:01 | NUR ---
CONCRETE PILE DRIVER OPERATOR NOTE PT LEFT IN STABLE CONDITION. REMOVED TELE MONITOR BOX. WENT OVER DISCHARGE INSTRUCTIONS WITH PATIENT. PT VERBALIZED UNDERSTANDING AND AGRREED.KEPT IV IN DUE TO REQUEST [facility] AND [facility]. PICKED UP BY AMBULANCE TEAM AND TAKEN TO [facility] FOR HIGHER LEVEL OF CARE. GAVE REPORT TO CHARITO AT [facility]
--- NOTE | 2022-08-18 15:37 | NUR ---
rn note received call from Case Management to provide patient results of exams
[2022-08-21] MEDS ORDERED: ERGOCALCIFEROL (VITAMIN D 2) 50,000 UNIT CAPSULE PO SCH (12:00)
== END 2022-08-17 18:21 | disposition short-term general hospital (02) | DRG 720 ==
LOC: ER 23:20 → ICU 08-09 01:52 → TELE1 08-09 07:51
PROVIDERS: ATTEND Nurse Practitioner Acute Care
PROC: 5A09357 Assistance with Respiratory Ventilation, Less than 24 Consecutive Hours, Continuous Positive Airway Pressure (ICD-10-PCS; principal; 2022-08-09)
PROC: 4A023N7 Measurement of Cardiac Sampling and Pressure, Left Heart, Percutaneous Approach (ICD-10-PCS; 2022-08-13)
PROC: B211YZZ Fluoroscopy of Multiple Coronary Arteries using Other Contrast (ICD-10-PCS; 2022-08-13)
DX: A41.9 Sepsis, unspecified organism (principal); N17.0 Acute kidney failure with tubular necrosis; I21.4 Non-ST elevation (NSTEMI) myocardial infarction; I50.23 Acute on chronic systolic (congestive) heart failure; J96.01 Acute respiratory failure with hypoxia; J96.02 Acute respiratory failure with hypercapnia; J15.9 Unspecified bacterial pneumonia; I13.0 Hypertensive heart and chronic kidney disease with heart failure and stage 1 through stage 4 chronic kidney disease, or unspecified chronic kidney disease; E87.1 Hypo-osmolality and hyponatremia; E11.22 Type 2 diabetes mellitus with diabetic chronic kidney disease; R65.20 Severe sepsis without septic shock; N18.9 Chronic kidney disease, unspecified; E78.5 Hyperlipidemia, unspecified; E11.65 Type 2 diabetes mellitus with hyperglycemia; I25.10 Atherosclerotic heart disease of native coronary artery without angina pectoris; K76.0 Fatty (change of) liver, not elsewhere classified; Z68.36 Body mass index [BMI] 36.0-36.9, adult; E66.9 Obesity, unspecified; Z20.822 Contact with and (suspected) exposure to COVID-19
CPT/HCPCS: 36415; 36600; 71045-TC; 76770-TC; 80048-TC; 80053-TC; 80076-TC; 81001; 82570-TC; 82803-TC; 82962-TC; 83735-TC; 83880; 84100-TC; 84300-TC; 84484-TC; 85025-TC; 85027-TC; 85610-TC; 85730-TC; 87081-TC; 87086-TC; 93307-TC; 94799-TC; 97116-TC; 97530-TC; A4223; C9803; G0378; G0500; J0696; J1644; J1815; J1885; J1940; J2250; J2270; J2405; J2543; J3010; J3370; J3490; J7030; J7050; J7060; Q9967

== ENCOUNTER 2022-09-01 00:25 | Inpatient (IN) | payer OTHER ==
[~2022-09-01] VITALS: Ht 172.7 cm; Wt 98.0 kg
[2022-09-01] VITALS (14 sets, daily range): BP systolic 106–159; BP diastolic 60–95
[~2022-09-01 00:25] MED LIST: ASPI-1420 PO; ATOR40TA PO; ERGO500093 PO; INSU100I26 SQ; INSU100I34 SQ; METO-358 PO; SERT25TA5 PO
[2022-09-01] MEDS ORDERED: NTG 50 MG/D5W250 ML BOTTL 250 ML IV ONE ×2 (00:35→01:00)
--- NOTE | 2022-09-01 00:37 | NUR ---
BLOOD COLLECTED AND SENT TO LAB
--- NOTE | 2022-09-01 00:40 | NUR ---
Note afia in ED - 09/01/22 at 0200 by BENNIE WN=492, TQ=150/106. NITRO DRIP AT 80MCG/MIN.
--- NOTE | 2022-09-01 00:40 | NUR ---
GQ=419, KS=[phone]/106. NITRO DRIP STARTED AT 5MCG/MIN AND TITRATED Q5MIN UP TO 80MCG/MIN.
--- NOTE | 2022-09-01 00:46 | NUR ---
COVID ANTIGEN SWAB AND MRSA SWAB COLLECTED AND SENT TO LAB
[2022-09-01] MEDS ORDERED: FUROSEMIDE 40 MG/4 ML VIAL ONE (00:49)
[2022-09-01 01:00] LABS: BASOPHILS # (AUTO) 0.2 K/uL (0.0-0.2); BASOPHILS % (AUTO) 1.1 % (0.0-2.0); EOSINOPHILS % (AUTO) 3.9 % (0.0-6.0); HEMATOCRIT 36 % (39-51); HEMOGLOBIN 11.5 g/dL (13.5-17.5); LYMPHOCYTES # (AUTO) 4.5 K/uL (0.8-4.8); MEAN CORPUSCULAR HGB CONC 33 g/dl (31.0-36.0); MEAN CORPUSCULAR VOLUME 86 fL (80-96); MONOCYTES # (AUTO) 0.6 K/uL (0.1-1.30); MONOCYTES % (AUTO) 4.7 % (2.0-12.0); NEUTROPHILS # (AUTO) 7.4 K/uL (1.8-8.9); NEUTROPHILS % (AUTO) 56.3 % (43.0-81.0); PLATELET COUNT (AUTO) 347 K/uL (150-450); RED BLOOD CELL COUNT(AUTO) 4.14 MIL/uL (4.5-6.0); WHITE BLOOD COUNT (AUTO) 13.2 K/uL (4.3-11.0)
[2022-09-01] MEDS ORDERED: FUROSEMIDE 40 MG/4 ML VIAL IV ONE (01:00)
[2022-09-01] MEDS ORDERED: ACETAMINOPHEN 325 MG TABLET PO ONE (01:00)
[2022-09-01 01:28] LABS: CALCIUM, SERUM 8.2 mg/dL (8.5-10.1); CARBON DIOXIDE 23 mmol/L (21-32); CHLORIDE 105 mmol/L (98-107); CREATININE 3.4 mg/dL (0.6-1.3); GLUCOSE 307 mg/dL (74-106); POTASSIUM 5.2 mmol/L (3.5-5.1); SODIUM SERUM 138 mmol/L (136-145); UREA NITROGEN, BLOOD 33 mg/dL (7-18)
[2022-09-01] MEDS ORDERED: ACETAMINOPHEN ES 500 MG TABLET ONE (01:30)
[2022-09-01 01:31] LABS: ALANINE AMINOTRANSFERASE 51 U/L (12-78); ALBUMIN 3.2 g/dL (3.4-5.0); ALKALINE PHOSPHATASE 91 U/L (46-116); ASPARTATE AMINOTRANSFERASE 41 U/L (15-37); BILIRUBIN,TOTAL 0.3 mg/dL (0.2-1.0); TOTAL PROTEIN, SERUM 6.9 g/dL (6.4-8.2)
--- NOTE | 2022-09-01 01:33 | NUR ---
troponin 195. ERMD aware
--- NOTE | 2022-09-01 01:33 | NUR ---
URINE COLLECTED AND SENT TO LAB
--- NOTE | 2022-09-01 01:36 | NUR ---
CLINICAL REPORT GIVEN TO LYNETTE WALKERLOG ROLLER
--- NOTE | 2022-09-01 01:38 | NUR ---
LACTIC ACID 2.3
[2022-09-01 01:44] LABS: ABG BASE EXCESS -7.4 mmol/L; ABG PCO2 41.8 mmHg (35.0-45.0); ABG PH 7.275 (7.350-7.450); ABG PO2 308.9 mmHg (75.0-100.0); COHb 0.3 % (0.5-1.5); MetHb 0.4 % (0.0-1.5); O2Hb 98.5 % (94.0-97.0); SITE, ABG Left Radial; VENT MODE, BG ST 15/5 18 80%
--- NOTE | 2022-09-01 01:45 | NUR ---
BIPAP SETTINGS: IPAP 15 EPAP 5 FIO2 80% RATE 18
--- NOTE | 2022-09-01 01:50 | NUR ---
EW=079, RM=747/92. NITRO GTT CURRENTLY AT 20MCG/MIN.
--- NOTE | 2022-09-01 01:51 | NUR ---
ICU 253
--- NOTE | 2022-09-01 01:52 | NUR ---
BIPAP SETTINGS CHANGED BY RT. NOW: IPAP 15 EPAP 5 FIO2 40% RATE 18
[2022-09-01 02:00] LABS: BILIRUBIN,URINE NEGATIVE (NEGATIVE); COLOR,URINE YELLOW (YELLOW); LEUKOCYTE ESTERASE ,URINE NEGATIVE (NEGATIVE); NITRITE, URINE NEGATIVE (NEGATIVE); PROTEIN,URINE 3+ mg/dl (NEGATIVE); UGLUCOSE 1+ mg/dL (NEGATIVE); UROBILINOGEN,URINE 0.2 EU/dL (0.2)
[2022-09-01] MEDS ORDERED: ASPIRIN 325 MG TABLET PO ONE (02:00)
--- NOTE | 2022-09-01 02:13 | NUR ---
CH=395, XR=734/77. NITRO GTT CURRENTLY AT 15MCG/MIN.
[2022-09-01] MEDS ORDERED: ASPIRIN 325 MG TABLET ONE (02:16)
[2022-09-01 02:34] LABS: BACTERIA,URINE Few /HPF (None Seen); SQUAMOUS EPITHELIAL CELL,UR Few /HPF (None Seen); WBC,URINE NONE SEEN /HPF (0-3)
--- NOTE | 2022-09-01 02:42 | NUR ---
REPORT GIVEN TO XENIA GIBSON
[2022-09-01] MEDS ORDERED: ACETAMINOPHEN 325 MG TABLET PO PRN (03:00)
[2022-09-01] MEDS ORDERED: DEXTROSE 50%-WATER 50 ML DISP.SYRIN IV PRN (03:00)
[2022-09-01] MEDS ORDERED: ONDANSETRON HCL/PF 4 MG/2 ML VIAL IVP PRN (03:00)
[2022-09-01] MEDS ORDERED: MORPHINE SULFATE INJ 2 MG/ML DISP.SYRIN IV PRN (03:00)
[2022-09-01] MEDS ORDERED: hydrALAZINE HCL IV 20 MG VIAL IV PRN (03:00)
--- NOTE | 2022-09-01 03:00 | NUR ---
PT TRANSPORTED TO 253 W/ ACLS PROTOCOL. NITRO GTT DISCONTINUED UPON TRANSFER. RB=173, KA=223/74. PT TOLERATED O2 VIA NC ON 4L DURING TRANSPORT, MAINTAINED 98% O2SAT WITHOUT ANY SOB OR RESPIRATORY DISTRESS. BIPAP ON STANDBY UPON TRANSFER TO ICU.
--- NOTE | 2022-09-01 03:00 | NUR ---
LIQUID FERTILIZER SERVICERBACK SHOE OPERATOR NOTE RECEIVED PT VIA [facility] FROM ER WITH ADMITTING DX OF CHF. PT IS AWAKE, A/O X 4, CITIZEN OF [place] SPEAKING, ABLE TO VERBALIZE NEEDS. ON O2 VIA NC AT 5LPM, SATING @ 98%. IV ACCESS ON LAC, #18g AND R HAND #18G BOTH PATENT AND INTACT. ADMISSION CARE RENDERED, SKIN ASSESSMENT DONE, INTACT, ALL SAFETY MEASURES IN PLACE: BED LOCKED IN LOW POSITION. BED ALARM ON. SR UP X 2. CALL LIGHT WITHIN REACH. WILL CONTINUE TO MONITOR AND REASSESS FOR ANY CHANGES AND WILL CARRY OUT ANY ONGOING AND ACTIVE MD ORDER.
[2022-09-01] MEDS: FUROSEMIDE 40 MG/4 ML VIAL IV SCH ×3 (03:20→16:52)
--- NOTE | 2022-09-01 06:46 | NUR ---
RADIOLOGY MANAGER CLOSING NOTE PT REMAINS IN BED ASLEEP, A/O X 4, HUNGARIAN SPEAKING, ABLE TO VERBALIZE NEEDS. ON O2 VIA NC AT 5LPM, SATING @ 98%. IV ACCESS ON LAC, #18g AND R HAND #18G BOTH PATENT AND INTACT. ALL SAFETY MEASURES IN PLACE: BED LOCKED IN LOW POSITION. BED ALARM ON. SR UP X 2. CALL LIGHT WITHIN REACH. ALL DUE MEDS GIVEN, KEPT DRY AND CLEAN, WILL ENDORSE TO AM SHIFT NURSE FOR CONTINUITY OF CARE.
--- NOTE | 2022-09-01 07:10 | NUR ---
RN OPENING NOTE: RECEIVED PT IN BED AOX4. AMHARIC SPEAKING. ABLE TO MAKE NEEDS KNOWN. ON 02 AT 5LPM NC. NO SOB. DENIES PAIN OR DISCOMFORT. LAC 18G AND R HAND 18G. PATENT AND INTACT. NO INFILTRATION NOTED. CONTINENT OF BOWEL AND BLADDER. ASSISTED PT TO BEDSIDE COMMODE REQUESTED. SINUS RHYTHM HR 98. CALL LIGHT WITHIN REACH. BED KEPT LOW AND LOCK FOR SAFETY.
--- NOTE | 2022-09-01 07:23 | NUR ---
ICU NOTE REPORT GIVEN TO FAITH GIBSON FOR CONTINUITY OF CARE.
[2022-09-01] MEDS: BLOOD SUGAR DIAGNOSTIC 1 EACH STRIP VI SCH ×4 (08:30→22:37)
[2022-09-01] MEDS: SERTRALINE HCL 25 MG TABLET PO SCH (08:30)
[2022-09-01] MEDS: METOPROLOL SUCCINATE 50 MG TAB.SR.24H PO SCH (08:32)
[2022-09-01] MEDS: HEPARIN SODIUM, PORCINE 5000 UNITS/1 ML VIAL SQ SCH ×2 (08:35→21:22)
[2022-09-01] MEDS: ASPIRIN EC 81 MG TABLET.DR PO SCH (08:35)
[2022-09-01] MEDS: INSULIN REGULAR, HUMAN 100 UNIT/ML 3 ML VIAL SQ PRN ×3 (08:37→16:51)
[2022-09-01] MEDS: INSULIN GLARGINE, 100 UNIT/ML CARTRIDGE SQ SCH ×2 (08:42→22:33)
[2022-09-01] MEDS ORDERED: SODIUM POLYSTYRENE SULFONATE 15 G/60 ML BOTTLE PO ONE (10:00)
[2022-09-01 10:41] LABS: THYROID STIMULATING HORMONE 13.169 uIU/mL (0.358-3.74)
--- NOTE | 2022-09-01 11:54 | NUR ---
RN NOTE: PT DOWNGRADED TO TELE. TRANSFER TO ROOM 115-2. PT AOX3. DENIES PAIN OR DISCOMFORT. CALM IN STABLE CONDITION. ACLS TRANSFER WITH RN. REPORT GIVEN TO KATI GIBSON FOR CONTINUITY OF CARE.
--- NOTE | 2022-09-01 12:00 | NUR ---
RN NOTE RECEIVED PATIENT DOWNGRADED FROM ICU TRANSPORTED VIA BED ACCOMPANIED BY ARTHUR CUEVAS. PATIENT IS AWAKE, A/O X3, VERBALLY RESPONSIVE, WELSH SPEAKING WITH VERY LITTLE FAROESE. DENIES ANY PAIN AT THIS TIME. PATIENT IS ON O2 INHALATION @2LPM VIA N/C, NO SOB NOTED, BREATHING EVEN AND UNLABORED. PLACED PATIENT ON INSURANCE CODER. SAFETY MEASURE IN PLACE. BED IN LOW AND LOCKED POSITION, SIDE RAILS UP X2, CALL LIGHT PLACED WITHIN EASY REACH. WILL CONTINUE TO MONITOR PATIENT.
--- NOTE | 2022-09-01 18:57 | NUR ---
RN CLOSING NOTE PATIENT IN BED, AWAKE, A/O X4, VERBALLY RESPONSIVE AND ABLE TO MAKE NEEDS KNOWN. BENINESE SPEAKING. NO SIGNS OF ACUTE DISTRESS NOTED. DENIES ANY CHEST PAIN. ON O2 INHALATION @2LPM VIA N/C, NO SOB NOTED, BREATHING EVEN AND UNLABORED. WITH IV ACCESS ON LEFT AC #20G AND RIGHT HAND #20G, INTACT AND PATENT, SALINE LOCKED. ON HUB CUTTER SHOWING SINUS TACH, HR @111. NO C/O PAIN AT THIS TIME. SAFETY PRECAUTION MAINTAINED. BED IN LOW AND LOCKED POSITION. SIDE RAILS UP X2, CALL LIGHT PLACED WITHIN EASY REACH. WILL ENDORSE TO NEXT SHIFT FOR CONTINUITY OF CARE.
--- NOTE | 2022-09-01 20:00 | NUR ---
WATER POLLUTION SPECIALIST OPENING NOTES RECEIVED PATIENT IN BED, AWAKE, A/O X4, VERBALLY RESPONSIVE AND ABLE TO MAKE NEEDS KNOWN. [place]KIST[place] SPEAKING. ON TELE MONITOR SR-ST 102 ON THE MONITOR NO SIGNS OF ACUTE DISTRESS NOTED. DENIES ANY CHEST PAIN. ON O2 INHALATION @2LPM VIA N/C, NO SOB NOTED, BREATHING EVEN AND UNLABORED. WITH IV ACCESS ON LEFT AC #20G AND RIGHT HAND #20G, INTACT AND PATENT, SALINE LOCKED. ALL DUE MEDS GIVEN ORDERED NO ASE NOTED SAFETY PRECAUTION MAINTAINED. BED IN LOW AND LOCKED POSITION. SIDE RAILS UP X2, CALL LIGHT PLACED WITHIN EASY REACH. WILL CONTINUE TO MONITOR PTS.
[2022-09-01] MEDS: ATORVASTATIN 40 MG TABLET PO SCH (21:22)
[2022-09-01] MEDS: *INSULIN REGULAR(HUMULIN R)HUM 100 UNIT/ML VIAL SQ PRN (22:36)
--- NOTE | 2022-09-01 22:39 | NUR ---
telecommunication systems designer notes Blood sugar at 10pm is 239mg/dl 30 units of lantus given as ordered . and 4 units of regular insulin given per sliding scale
[2022-09-02] VITALS: BP 154/80
--- NOTE | 2022-09-02 02:00 | NUR ---
television tube inspector notes PTS requesting for sleeping pill , awaiting for orders.informe Dr Rossi awaiting reply.
--- NOTE | 2022-09-02 03:36 | NUR ---
telesales specialist notes received order from Dr Rossi traracheldone 100mg q hs .order noted and carried out
[2022-09-02 04:00] VITALS: BP 142/78
--- NOTE | 2022-09-02 07:09 | NUR ---
television presenter notes Pts remain in bed awake alert x3 on 2liters of 02 via nc sating 98% no sob no distress noted onc/o abdominal pain , will endorse to rn day shift for continuity of care
--- NOTE | 2022-09-02 07:40 | NUR ---
FISHERIES BIOLOGIST OPENING NOTE PT ALERT AND ORIENTED X4. ON 2L NASAL CANNULA TOLERATING AT 98%.ON TELE MONITOR SINUS RHYTM/SINUS TACHYCARDIA. VERBALLY RESPONSIVE AND ABLE TO MAKE NEEDS KNOWN. PT IS AMBULATORY WITH CANE. PT HAS IV ACCESS ON R AND LEFT HAND. IV INTACT, PATENT AND FLUSHING WELL ALL SAFETY MEASURES IN PLACE. CALL LIGHT WITHIN REACH. BED LOCKED AT LOWEST POSITION. SIDE RAILS UP X2.
[2022-09-02 07:42] LABS: BASOPHILS % (AUTO) 0.9 % (0.0-2.0); EOSINOPHILS % (AUTO) 3.3 % (0.0-6.0); HEMATOCRIT 31 % (39-51); HEMOGLOBIN 10.5 g/dL (13.5-17.5); LYMPHOCYTES # (AUTO) 0.7 K/uL (0.8-4.8); LYMPHOCYTES % (AUTO) 16.3 % (20.0-44.0); MEAN CORPUSCULAR HGB CONC 34 g/dl (31.0-36.0); MEAN CORPUSCULAR VOLUME 85 fL (80-96); MONOCYTES # (AUTO) 0.3 K/uL (0.1-1.30); NEUTROPHILS # (AUTO) 2.9 K/uL (1.8-8.9); NEUTROPHILS % (AUTO) 71.5 % (43.0-81.0); PLATELET COUNT (AUTO) 128 K/uL (150-450); RED BLOOD CELL COUNT(AUTO) 3.67 MIL/uL (4.5-6.0); WHITE BLOOD COUNT (AUTO) 4.1 K/uL (4.3-11.0)
[2022-09-02 08:00] VITALS: BP 120/66
[2022-09-02 08:19] LABS: ALBUMIN 2.9 g/dL (3.4-5.0); BILIRUBIN,TOTAL 0.3 mg/dL (0.2-1.0); CALCIUM, SERUM 8.7 mg/dL (8.5-10.1); CREATININE 3.1 mg/dL (0.6-1.3); MAGNESIUM 1.9 mg/dL (1.8-2.4); PHOSPHORUS 4.1 mg/dL (2.5-4.9); POTASSIUM 3.9 mmol/L (3.5-5.1); TOTAL PROTEIN, SERUM 6.3 g/dL (6.4-8.2)
[2022-09-02] MEDS: BLOOD SUGAR DIAGNOSTIC 1 EACH STRIP VI SCH ×4 (08:21→21:45)
[2022-09-02] MEDS: HEPARIN SODIUM, PORCINE 5000 UNITS/1 ML VIAL SQ SCH ×2 (08:51→21:00)
--- NOTE | 2022-09-02 08:51 | NUR ---
rn note notfied materials scientist kit alston that hgb 10.5 and platelets dropped from 347 to 125 and if okay to hold heparin. said to hold heparin at this time. order noted and carried out
[2022-09-02] MEDS: ASPIRIN EC 81 MG TABLET.DR PO SCH (08:53)
[2022-09-02] MEDS: METOPROLOL SUCCINATE 50 MG TAB.SR.24H PO SCH (08:53)
[2022-09-02] MEDS: FUROSEMIDE 40 MG/4 ML VIAL IV SCH ×2 (08:53→17:24)
[2022-09-02] MEDS: INSULIN GLARGINE, 100 UNIT/ML CARTRIDGE SQ SCH ×2 (08:54→21:43)
[2022-09-02] MEDS: SERTRALINE HCL 25 MG TABLET PO SCH (08:54)
[2022-09-02 12:00] VITALS: BP 144/74
[2022-09-02] MEDS ORDERED: CARV6.252 PO (12:34)
[2022-09-02] MEDS ORDERED: FURO40TA5 PO (12:34)
[2022-09-02] MEDS ORDERED: OMEG-72 PO (12:34)
[2022-09-02] MEDS ORDERED: ISOS30TA86 PO (12:34)
[2022-09-02] MEDS ORDERED: CLOP75TA15 PO (12:34)
[2022-09-02] MEDS: INSULIN REGULAR, HUMAN 100 UNIT/ML 3 ML VIAL SQ PRN ×2 (14:23→17:27)
[2022-09-02 16:00] VITALS: BP 128/77
--- NOTE | 2022-09-02 19:30 | NUR ---
SUPERVISOR MULTIFOCAL LENS OPENING NOTES RECEIVED PATIENT IN BED, AWAKE, A/O X4, VERBALLY RESPONSIVE AND ABLE TO MAKE NEEDS KNOWN. ENGLISH SPEAKING. NO SIGNS OF ACUTE DISTRESS NOTED. DENIES ANY CHEST PAIN. ON O2 INHALATION @2LPM VIA N/C, NO SOB NOTED, BREATHING EVEN AND UNLABORED. WITH IV ACCESS ON LEFT AC #20G AND RIGHT HAND #20G, INTACT AND PATENT, SALINE LOCKED. ALL DUE MEDS GIVEN ORDERED NO ASE NOTED SAFETY PRECAUTION MAINTAINED. BED IN LOW AND LOCKED POSITION. SIDE RAILS UP X2, CALL LIGHT PLACED WITHIN EASY REACH. WILL CONTINUE TO MONITOR.
--- NOTE | 2022-09-02 20:06 | NUR ---
HOME HEALTH CLINICAL SUPERVISOR CLOSING NOTE PT ALERT AND ORIENTED X4. ON 2L NASAL CANNULA TOLERATING AT 99%.ON TELE MONITOR SINUS RHYTM/SINUS TACHYCARDIA. VERBALLY RESPONSIVE AND ABLE TO MAKE NEEDS KNOWN. PT IS AMBULATORY WITH CANE. PT HAS IV ACCESS ON R AND LEFT HAND. IV INTACT, PATENT AND FLUSHING WELL ALL SAFETY MEASURES IN PLACE. CALL LIGHT WITHIN REACH. BED LOCKED AT LOWEST POSITION. SIDE RAILS UP X2. ENDORSED TO TEMPERATURE INSPECTOR RN FOR CONTUITY OF CARE
--- NOTE | 2022-09-02 20:46 | NUR ---
RN NOTE HEPARIN 5000 UNITS HELD THIS AM DUE TO DROP IN PLATELET FROM 347 TO 128, VERIFIED WITH DR WINSTON IF OK TO HOLD, ORDER RECEIVED TO HOLD CURRENT DOSE.
[2022-09-02] MEDS: TRAZODONE 50 MG TABLET PO SCH (21:42)
[2022-09-02] MEDS: ATORVASTATIN 40 MG TABLET PO SCH (21:42)
[2022-09-02] MEDS: *INSULIN REGULAR(HUMULIN R)HUM 100 UNIT/ML VIAL SQ PRN (21:45)
[2022-09-02 22:08] VITALS: BP 133/76
[2022-09-03 00:14] VITALS: BP 106/49
[2022-09-03 05:50] VITALS: BP 95/48
--- NOTE | 2022-09-03 07:00 | NUR ---
RN NOTE RECEIVED PATIENT IN BED RESTING ALERT ORIENTED X4,VERBALLY RESPONSIVE ON 2L OXYGEN VIA NASAL CANNULA O2:98%N WITH IV ACCESS ON LEFT AC #20G AND RIGHT HAND #20G,CONTINET BOWEL/BLADER,AMBUALTORY WITH ASSIST,SAFETY MEASURE IMPLEMENT,BED IN LOW POSITION AND LOCKED CALL LIGHT WITHIN REACH,CONTINUE TO MONITOR
[2022-09-03 07:05] LABS: BASOPHILS % (AUTO) 1.2 % (0.0-2.0); EOSINOPHILS % (AUTO) 5.8 % (0.0-6.0); HEMATOCRIT 31 % (39-51); HEMOGLOBIN 10.4 g/dL (13.5-17.5); LYMPHOCYTES # (AUTO) 1.1 K/uL (0.8-4.8); LYMPHOCYTES % (AUTO) 29.5 % (20.0-44.0); MEAN CORPUSCULAR HGB CONC 33 g/dl (31.0-36.0); MEAN CORPUSCULAR VOLUME 84 fL (80-96); MONOCYTES # (AUTO) 0.3 K/uL (0.1-1.30); MONOCYTES % (AUTO) 8.2 % (2.0-12.0); NEUTROPHILS % (AUTO) 55.3 % (43.0-81.0); PLATELET COUNT (AUTO) 137 K/uL (150-450); RED BLOOD CELL COUNT(AUTO) 3.72 MIL/uL (4.5-6.0); WHITE BLOOD COUNT (AUTO) 3.6 K/uL (4.3-11.0)
[2022-09-03 07:09] LABS: CALCIUM, SERUM 8.7 mg/dL (8.5-10.1); CREATININE 3.4 mg/dL (0.6-1.3); POTASSIUM 4.3 mmol/L (3.5-5.1)
[2022-09-03] MEDS: BLOOD SUGAR DIAGNOSTIC 1 EACH STRIP VI SCH ×4 (07:17→22:06)
[2022-09-03 08:00] VITALS: BP 127/67
[2022-09-03] MEDS: SERTRALINE HCL 25 MG TABLET PO SCH (08:41)
[2022-09-03] MEDS: FUROSEMIDE 40 MG/4 ML VIAL IV SCH ×2 (08:41→16:18)
[2022-09-03] MEDS: ASPIRIN EC 81 MG TABLET.DR PO SCH (08:41)
[2022-09-03] MEDS: INSULIN GLARGINE, 100 UNIT/ML CARTRIDGE SQ SCH ×2 (08:44→22:06)
[2022-09-03] MEDS: METOPROLOL SUCCINATE 50 MG TAB.SR.24H PO SCH (08:45)
[2022-09-03] MEDS: HEPARIN SODIUM, PORCINE 5000 UNITS/1 ML VIAL SQ SCH ×2 (09:00→21:00)
[2022-09-03 12:00] VITALS: BP 123/70
[2022-09-03] MEDS: INSULIN REGULAR, HUMAN 100 UNIT/ML 3 ML VIAL SQ PRN ×2 (12:09→17:41)
[2022-09-03 16:00] VITALS: BP 124/67
--- NOTE | 2022-09-03 18:27 | NUR ---
RN NOTE PATIENT REMAINS ALERT ORIENTED X4 VERBALLY RESPONSIVE NO SOB NOT ACUTE DISTRESS NOTED ALL DUE MEDS GIVEN MD ORDERED KEPT CLEAN AND DRY ALL THE TIME,KEPT COMFORTABLE,AMBUALTORY WITH ASSIST,KEPT HEAD OF THE BED ELEVATED ALL THE TIME,KEPT CALL LIGHT WITHIN REACH,ENDORSE NEXT COMING SHIFT FOR CONTINUATION OF CARE.
--- NOTE | 2022-09-03 18:56 | NUR ---
RN NOTE RECEIVED PHONE CALL FROM UNDERGROUND PRODUCTION FOREPERSON FROM [facility],PATIENT GOT ROOM 6518 BED ONE AND FOR REPORT CALL ENDORSE NEXT COMING SHIFT.
--- NOTE | 2022-09-03 19:20 | NUR ---
RN NOTE Report received from Deb GIBSON, patient in bed, in no acute distress, no complains of pain, saturation at 96% on room air, SR on the monitor, HR is 90. IV line at LAC 18g patent and flushing well, saline locked. Patient is continent and ambulatory with cane, uses urinal, noted a moderate amount of clear, yellow output. Safety measures implemented, bed is locked and at lowest position, HOB elevated, call light within reach of patient. Will continue to monitor and reassess.
[2022-09-03 20:00] VITALS: BP 146/86
--- NOTE | 2022-09-03 20:20 | NUR ---
RN NOTE PT REFUSING TO BE TRANSFERRED TO [facility] THEY DECLINED HIM FOR CABG PREVIOUSLY. TELEPHONE CALL TO DAUGHTER AT [phone], WELL REFUSES,STATES THEY PREFER A HOSPITAL [place]. DR WILLIS MADE AWARE.
--- NOTE | 2022-09-03 20:22 | NUR ---
PATIENT'S DAUGHTER BOBO [phone]
--- NOTE | 2022-09-03 21:01 | NUR ---
RN NOTE No response from Dr Young. Dr Tamez made aware pt and family refused transfer to [facility] [place], he acknowledged.
--- NOTE | 2022-09-03 21:57 | NUR ---
RN NOTE HEPARIN 5000 UNITS HELD DUE TO DROP IN PLATELET, AWARE
[2022-09-03] MEDS: TRAZODONE 50 MG TABLET PO SCH (22:04)
[2022-09-03] MEDS: *INSULIN REGULAR(HUMULIN R)HUM 100 UNIT/ML VIAL SQ PRN (22:05)
[2022-09-03] MEDS: ATORVASTATIN 40 MG TABLET PO SCH (22:06)
--- NOTE | 2022-09-03 22:30 | NUR ---
223 Telephone call to [facility] at [phone], spoke with Vicenta, told her trying to reach case mgt as pt [facility]. was told she will have someone call me back. Provided with call back number. [phone] Call back received from Kem Hawk of [facility] [phone], said they will try to talk to patient and family and explain the need for transfer to [facility]. 2250 Per Kem of [facility], daughter and patient agreed with transfer. Confirmed with daughter Ruslan and patient himself. ETA is now 0000. 2304 Report given to Rajan GIBSON of [facility]. Awaiting for transport.
[2022-09-04] VITALS: BP 145/81
--- NOTE | 2022-09-04 01:22 | NUR ---
Patient transferred to [place] [id number] via ACLS protocol. All belongings sent with patient. Vital signs within normal limits.
[2022-09-04] MEDS ORDERED: ERGOCALCIFEROL (VITAMIN D 2) 50,000 UNIT CAPSULE PO SCH (09:00)
== END 2022-09-04 02:22 | disposition short-term general hospital (02) | DRG 194 ==
LOC: ER 00:27 → ICU 01:54 → TELE1 11:48
PROVIDERS: ADMIT Nurse Practitioner Acute Care; ATTEND Nurse Practitioner Acute Care
PROC: 5A09357 Assistance with Respiratory Ventilation, Less than 24 Consecutive Hours, Continuous Positive Airway Pressure (ICD-10-PCS; principal; 2022-09-01)
DX: I13.0 Hypertensive heart and chronic kidney disease with heart failure and stage 1 through stage 4 chronic kidney disease, or unspecified chronic kidney disease (principal); J96.01 Acute respiratory failure with hypoxia; N17.0 Acute kidney failure with tubular necrosis; I21.A1 Myocardial infarction type 2; E87.20 Acidosis, unspecified; D63.8 Anemia in other chronic diseases classified elsewhere; I50.23 Acute on chronic systolic (congestive) heart failure; I16.1 Hypertensive emergency; N18.9 Chronic kidney disease, unspecified; E87.5 Hyperkalemia; I25.10 Atherosclerotic heart disease of native coronary artery without angina pectoris; I25.5 Ischemic cardiomyopathy; E78.5 Hyperlipidemia, unspecified; E11.22 Type 2 diabetes mellitus with diabetic chronic kidney disease; D50.9 Iron deficiency anemia, unspecified; E66.9 Obesity, unspecified; G47.33 Obstructive sleep apnea (adult) (pediatric); Z68.32 Body mass index [BMI] 32.0-32.9, adult; J98.11 Atelectasis
CPT/HCPCS: 36415; 36600; 71045-TC; 71250-TC; 80048-TC; 80053-TC; 80076-TC; 81001; 82533; 82803-TC; 82962-TC; 83540-TC; 83605-TC; 83735-TC; 83880; 84100-TC; 84443-TC; 84484-TC; 85025-TC; 85730-TC; 86706; 86803; 87040-TC; 87081-TC; 94660; A4223; G0378; J1644; J1815; J1940; J3490

== ENCOUNTER 2024-09-23 23:43 | Inpatient (IN) | payer MEDICARE, OTHER ==
[~2024-09-23] VITALS: Ht 167.6 cm; Wt 103.4 kg
[~2024-09-23 23:43] MED LIST changes: +CARV6.252 PO; +CLOP75TA15 PO; -ERGO500093 PO; +FURO40TA5 PO; -INSU100I34 SQ; +ISOS30TA86 PO; -METO-358 PO; +OMEG-72 PO; -SERT25TA5 PO
[2024-09-23] MEDS ORDERED: ALBUTEROL FS 2.5 MG/3 ML VIAL.NEB ONE (23:46)
[2024-09-23] MEDS ORDERED: IPRATROPIUM NEB FS 0.5 MG/2.5 ML AMPUL.NEB ONE (23:46)
[2024-09-23] MEDS ORDERED: methylPREDNISolone SOD SUCC 125 MG/2ML VIAL ONE (23:51)
[2024-09-23] MEDS ORDERED: CEFTRIAXONE 1GM BAG (ER ONLY) 50 ML IV ONE (23:52)
[2024-09-23] MEDS: IPRATROPIUM NEB FS 0.5 MG/2.5 ML AMPUL.NEB NEB ONE (23:54)
[2024-09-23] MEDS: ALBUTEROL FS 2.5 MG/3 ML VIAL.NEB NEB ONE (23:54)
[2024-09-24] VITALS (7 sets, daily range): BP systolic 148–196; BP diastolic 67–102; TEMP 97.7–98; O2SAT 97–99
[2024-09-24] MEDS: CEFTRIAXONE 1 G in IV D5W 50 ML IV ONE (00:03)
[2024-09-24] MEDS: methylPREDNISolone SOD SUCC 125 MG/2ML VIAL IV ONE (00:03)
[2024-09-24 00:04] LABS: BASOPHILS # (AUTO) 0.1 K/uL (0.0-0.2); BASOPHILS % (AUTO) 0.9 % (0.0-2.0); EOSINOPHILS # (AUTO) 0.2 K/uL (0.0-0.7); EOSINOPHILS % (AUTO) 2.4 % (0.0-6.0); HEMATOCRIT 31 % (39-51); LYMPHOCYTES # (AUTO) 0.9 K/uL (0.8-4.8); LYMPHOCYTES % (AUTO) 12.1 % (20.0-44.0); MEAN CORPUSCULAR HEMOGLOBIN 30 PG (26.0-33.0); MEAN CORPUSCULAR HGB CONC 33 g/dl (31.0-36.0); MEAN CORPUSCULAR VOLUME 93 fL (80-96); MONOCYTES # (AUTO) 0.3 K/uL (0.1-1.30); MONOCYTES % (AUTO) 3.3 % (2.0-12.0); NEUTROPHILS # (AUTO) 6.2 K/uL (1.8-8.9); NEUTROPHILS % (AUTO) 81.3 % (43.0-81.0); PLATELET COUNT (AUTO) 165 K/uL (150-450); RED BLOOD CELL COUNT(AUTO) 3.31 MIL/uL (4.5-6.0); RED CELL DISTRIBUTION WIDTH 16.9 % (11.5-15.0); WHITE BLOOD COUNT (AUTO) 7.6 K/uL (4.3-11.0)
[2024-09-24 00:14] LABS: CARBON DIOXIDE 23 mmol/L (21-32); CHLORIDE 99 mmol/L (98-107); SODIUM SERUM 132 mmol/L (136-145); UREA NITROGEN, BLOOD 68 mg/dL (7-18)
[2024-09-24 00:17] LABS: CREATININE 9.9 mg/dL (0.6-1.3); GLUCOSE 507 mg/dL (74-106); POTASSIUM 6.3 mmol/L (3.5-5.1)
[2024-09-24 00:24] LABS: ALANINE AMINOTRANSFERASE 20 U/L (12-78); ALBUMIN 3.5 g/dL (3.4-5.0); ALKALINE PHOSPHATASE 92 U/L (46-116); ASPARTATE AMINOTRANSFERASE 12 U/L (15-37); BILIRUBIN,DIRECT 0.1 mg/dL (0.0-0.2); BILIRUBIN,TOTAL 0.5 mg/dL (0.2-1.0); NT-PRO BNP 19297 pg/mL (0-125)
[2024-09-24 00:25] LABS: TOTAL PROTEIN, SERUM 7.2 g/dL (6.4-8.2)
[2024-09-24] MEDS ORDERED: CALCIUM CHLORIDE 1,000 MG/10 ML DISP.SYRIN ONE (00:32)
[2024-09-24] MEDS ORDERED: FUROSEMIDE 20 MG/2 ML VIAL ONE (00:32)
[2024-09-24] MEDS ORDERED: SODIUM BICARBONATE SYR 50 MEQ/50 ML DISP.SYRIN ONE (00:32)
[2024-09-24 00:38] LABS: LYMPHOCYTES % (MANUAL) 14 % (16-48); NEUTROPHILS % (MANUAL) 81 (42-76)
[2024-09-24 00:39] LABS: EOSINOPHILS % (MANUAL) 1 % (0-4); MONOCYTES % (MANUAL) 4 % (0-11.0); PLATELET ESTIMATE ADEQUATE
[2024-09-24 00:40] LABS: ANISOCYTOSIS 1+
[2024-09-24 00:49] LABS: ABG BASE EXCESS -6.9 mmol/L (-2.0-3.0); ABG OXYGEN SATURATION 98.9 % (94.0-98.0); ABG PCO2 43.9 mmHg (35.0-48.0); ABG PH 7.269 (7.350-7.450); ABG PO2 212.3 mmHg (83.0-108.0); ABG TOTAL HEMOGLOBIN 9.9 G/dL (13.5-17.5); COHb 0.3 % (0.5-1.5); MetHb 0.1 % (0.0-1.5); O2Hb 98.5 % (94.0-97.0); SITE, ABG RIGHT RADIAL
[2024-09-24] MEDS: CALCIUM CHLORIDE 1,000 MG/10 ML DISP.SYRIN IV ONE (00:49)
[2024-09-24] MEDS: INSULIN REGULAR, HUMAN 100 UNIT/ML 10 ML VIAL IV ONE (00:50)
[2024-09-24] MEDS: FUROSEMIDE 40 MG/4 ML VIAL IV ONE (00:50)
[2024-09-24] MEDS: SODIUM BICARBONATE SYR 50 MEQ/50 ML DISP.SYRIN IV ONE (00:50)
[2024-09-24] MEDS ORDERED: DEXTROSE 50%-WATER 50 ML DISP.SYRIN IV PRN (01:00)
[2024-09-24] MEDS ORDERED: MORPHINE SULFATE INJ 2 MG/ML DISP.SYRIN IV PRN (01:00)
[2024-09-24] MEDS ORDERED: ONDANSETRON HCL/PF 4 MG/2 ML VIAL IVP PRN (01:00)
[2024-09-24] MEDS ORDERED: ALBUTEROL FS 2.5 MG/0.5 ML VIAL.NEB NEB PRN ×2 (01:00→06:19)
[2024-09-24] MEDS ORDERED: CEFEPIME 1 GM VIAL ONE (03:31)
[2024-09-24] MEDS ORDERED: ALTEPLASE CATHFLO 2 MG/VIAL ONE (03:32)
[2024-09-24] MEDS ORDERED: VANCOMYCIN 500 MG VIAL ONE (03:36)
[2024-09-24] MEDS: CEFEPIME 1 GM in IV D5W 50 ML IV ONE (03:42)
[2024-09-24] MEDS: ALTEPLASE CATHFLO 2 MG/VIAL XX ONE (04:01)
[2024-09-24] MEDS: VANCOMYCIN 1 GM /D5W 250 ML PB IV ONE (04:08)
[2024-09-24] MEDS: SODIUM ZIRCONIUM CYCLOSILICATE 10 GM POWD.PACK PO ONE ×2 (04:14→15:08)
[2024-09-24] MEDS: VANCOMYCIN 1.5 GM in IV D5W 500 ML IV ONE (04:40)
[2024-09-24] MEDS: VANCOMYCIN 1 GM in IV D5W 250 ML IV ONE (04:40)
[2024-09-24] MEDS ORDERED: IPRATROPIUM/ALBUTEROL INHALER IH SCH (06:00)
[2024-09-24] MEDS: hydrALAZINE HCL IV 20 MG VIAL IV PRN (07:09)
[2024-09-24] MEDS ORDERED: ALBUTEROL FS 2.5 MG/3 ML VIAL.NEB NEB SCH (07:35)
[2024-09-24] MEDS: BLOOD SUGAR DIAGNOSTIC 1 EACH STRIP IN SCH (08:00)
[2024-09-24] MEDS: INSULIN GLARGINE, 100 UNIT/ML CARTRIDGE SQ SCH (08:21)
[2024-09-24] MEDS: FUROSEMIDE 40 MG/4 ML VIAL IV SCH (08:22)
[2024-09-24] MEDS: INSULIN REGULAR, HUMAN 100 UNIT/ML 3 ML VIAL SQ PRN (08:23)
[2024-09-24] MEDS ORDERED: ATORVASTATIN 40 MG TABLET PO SCH (09:00)
[2024-09-24] MEDS ORDERED: OMEGA ACID ETHYL ESTERS PO SCH (09:00)
[2024-09-24] MEDS: HEPARIN SODIUM, PORCINE 5000 UNITS/1 ML VIAL SQ SCH (11:50)
[2024-09-24 12:25] LABS: CALCIUM, SERUM 9.3 mg/dL (8.5-10.1); MAGNESIUM 2.5 mg/dL (1.8-2.4); PHOSPHORUS 5.4 mg/dL (2.5-4.9); POTASSIUM 5.8 mmol/L (3.5-5.1)
[2024-09-24 12:54] LABS: BASOPHILS % (AUTO) 1.6 % (0.0-2.0); EOSINOPHILS % (AUTO) 0.8 % (0.0-6.0); HEMATOCRIT 29 % (39-51); HEMOGLOBIN 9.6 g/dL (13.5-17.5); LYMPHOCYTES # (AUTO) 0.5 K/uL (0.8-4.8); LYMPHOCYTES % (AUTO) 21.3 % (20.0-44.0); MEAN CORPUSCULAR HEMOGLOBIN 30 PG (26.0-33.0); MEAN CORPUSCULAR HGB CONC 33 g/dl (31.0-36.0); MEAN CORPUSCULAR VOLUME 92 fL (80-96); MONOCYTES % (AUTO) 0.8 % (2.0-12.0); NEUTROPHILS # (AUTO) 1.6 K/uL (1.8-8.9); NEUTROPHILS % (AUTO) 75.5 % (43.0-81.0); PLATELET COUNT (AUTO) 146 K/uL (150-450); RED CELL DISTRIBUTION WIDTH 16.8 % (11.5-15.0); WHITE BLOOD COUNT (AUTO) 2.1 K/uL (4.3-11.0)
[2024-09-24] MEDS: ASPIRIN EC 81 MG TABLET.DR PO SCH (13:25)
[2024-09-24] MEDS: CARVEDILOL 6.25 MG TABLET PO SCH (13:26)
[2024-09-24] MEDS: CLOPIDOGREL BISULFATE 75 MG TABLET PO SCH (13:26)
[2024-09-24] MEDS: ISOSORBIDE MONONITRATE (30MG) 30 MG TAB.SR.24H PO SCH (13:26)
[2024-09-24] MEDS: ATORVASTATIN 40 MG TABLET PO SCH (16:23)
[2024-09-24] MEDS: IPRATROPIUM NEB FS 0.5 MG/2.5 ML AMPUL.NEB NEB SCH (16:43)
[2024-09-24 16:44] LABS: BASOPHILS % (MANUAL) 0 % (0.0-2.0); EOSINOPHILS % (MANUAL) 0 % (0-4); LYMPHOCYTES % (MANUAL) 23 % (16-48); MONOCYTES % (MANUAL) 3 % (0-11.0); NEUTROPHILS % (MANUAL) 74 (42-76)
[2024-09-24 16:45] LABS: ANISOCYTOSIS 1+; PLATELET ESTIMATE DECREASED
[2024-09-24] MEDS: hydrALAZINE HCL 25 MG TABLET PO SCH (18:39)
[2024-09-24] MEDS: ALBUTEROL FS 2.5 MG/3 ML VIAL.NEB NEB SCH (19:51)
[2024-09-25] VITALS (12 sets, daily range): BP systolic 133–142; BP diastolic 61–81; TEMP 97.9–98.4; O2SAT 95–100
[2024-09-25] MEDS: CEFEPIME 1 GM in IV D5W 50 ML IV SCH (01:55)
[2024-09-25 05:09] LABS: HEPATITIS B SURFACE AB (QUAL) Non Reactive (.)
[2024-09-25 06:58] LABS: BASOPHILS % (AUTO) 0.4 % (0.0-2.0); EOSINOPHILS # (AUTO) 0.1 K/uL (0.0-0.7); HEMATOCRIT 27 % (39-51); HEMOGLOBIN 8.9 g/dL (13.5-17.5); LYMPHOCYTES # (AUTO) 1.1 K/uL (0.8-4.8); LYMPHOCYTES % (AUTO) 11.6 % (20.0-44.0); MEAN CORPUSCULAR HEMOGLOBIN 30 PG (26.0-33.0); MEAN CORPUSCULAR HGB CONC 33 g/dl (31.0-36.0); MEAN CORPUSCULAR VOLUME 92 fL (80-96); MONOCYTES # (AUTO) 0.4 K/uL (0.1-1.30); MONOCYTES % (AUTO) 4.3 % (2.0-12.0); NEUTROPHILS # (AUTO) 7.5 K/uL (1.8-8.9); NEUTROPHILS % (AUTO) 82.7 % (43.0-81.0); PLATELET COUNT (AUTO) 148 K/uL (150-450); RED BLOOD CELL COUNT(AUTO) 2.98 MIL/uL (4.5-6.0); RED CELL DISTRIBUTION WIDTH 17.2 % (11.5-15.0); WHITE BLOOD COUNT (AUTO) 9.1 K/uL (4.3-11.0)
[2024-09-25 07:08] LABS: ALBUMIN 3.2 g/dL (3.4-5.0); BILIRUBIN,TOTAL 0.4 mg/dL (0.2-1.0); CALCIUM, SERUM 9.1 mg/dL (8.5-10.1); MAGNESIUM 2.6 mg/dL (1.8-2.4); PHOSPHORUS 7.2 mg/dL (2.5-4.9); POTASSIUM 5.2 mmol/L (3.5-5.1); TOTAL PROTEIN, SERUM 6.5 g/dL (6.4-8.2)
[2024-09-25 07:12] LABS: CREATININE 9.8 mg/dL (0.6-1.3)
[2024-09-25 08:07] LABS: ABG BASE EXCESS -4.5 mmol/L (-2.0-3.0); ABG OXYGEN SATURATION 97.5 % (94.0-98.0); ABG PCO2 44.8 mmHg (35.0-48.0); ABG PH 7.302 (7.350-7.450); ABG PO2 109.5 mmHg (83.0-108.0); ABG TOTAL HEMOGLOBIN 9.6 G/dL (13.5-17.5); COHb 0.1 % (0.5-1.5); MetHb 0.1 % (0.0-1.5); O2Hb 97.3 % (94.0-97.0); SITE, ABG RIGHT BRACHIAL
[2024-09-25 09:17] LABS: PROTHROMBIN TIME 10.6 SECS (9.2-11.1)
[2024-09-25] MEDS: BLOOD SUGAR DIAGNOSTIC 1 EACH STRIP IN SCH ×2 (12:00→16:49)
[2024-09-25] MEDS ORDERED: LIDOCAINE 1% INJ 50 ML MDV IJ ONE (14:05)
[2024-09-25] MEDS ORDERED: HEPARIN SODIUM, PORCINE 1,000 UNIT/ML VIAL ONE (14:05)
[2024-09-25] MEDS ORDERED: IOHEXOL 0 ML IV ONE (14:05)
[2024-09-25] MEDS ORDERED: BACITRACIN ZINC OINT (15 GM) 15 GM TUBE TP ONE (15:16)
[2024-09-25] MEDS ORDERED: VANCOMYCIN POST DIALYSIS 500MG IV PRN (17:00)
[2024-09-25] MEDS: hydrALAZINE HCL 25 MG TABLET PO SCH (21:02)
[2024-09-26] VITALS (10 sets, daily range): BP systolic 123–144; BP diastolic 59–88; TEMP 97.8–98; O2SAT 96–100
[2024-09-26] MEDS: ACETAMINOPHEN 325 MG TABLET PO PRN (02:10)
[2024-09-26 07:33] LABS: BASOPHILS # (AUTO) 0.1 K/uL (0.0-0.2); BASOPHILS % (AUTO) 0.8 % (0.0-2.0); EOSINOPHILS # (AUTO) 0.2 K/uL (0.0-0.7); EOSINOPHILS % (AUTO) 1.9 % (0.0-6.0); HEMATOCRIT 30 % (39-51); HEMOGLOBIN 9.5 g/dL (13.5-17.5); LYMPHOCYTES % (AUTO) 12.4 % (20.0-44.0); MEAN CORPUSCULAR HEMOGLOBIN 30 PG (26.0-33.0); MEAN CORPUSCULAR HGB CONC 32 g/dl (31.0-36.0); MEAN CORPUSCULAR VOLUME 92 fL (80-96); MONOCYTES # (AUTO) 0.4 K/uL (0.1-1.30); MONOCYTES % (AUTO) 4.6 % (2.0-12.0); NEUTROPHILS # (AUTO) 6.5 K/uL (1.8-8.9); NEUTROPHILS % (AUTO) 80.3 % (43.0-81.0); PLATELET COUNT (AUTO) 156 K/uL (150-450); RED BLOOD CELL COUNT(AUTO) 3.22 MIL/uL (4.5-6.0); RED CELL DISTRIBUTION WIDTH 17.5 % (11.5-15.0)
[2024-09-26 07:41] LABS: CALCIUM, SERUM 8.3 mg/dL (8.5-10.1); MAGNESIUM 2.7 mg/dL (1.8-2.4); PHOSPHORUS 7.5 mg/dL (2.5-4.9); POTASSIUM 4.9 mmol/L (3.5-5.1)
[2024-09-26 08:29] LABS: CREATININE 10.3 mg/dL (0.6-1.3)
[2024-09-26] MEDS ORDERED: AMOX250S65 PO (11:01)
[2024-09-26] MEDS: AMOX/CLAVULANATE 250 MG TABLET PO SCH (19:05)
== END 2024-09-26 20:40 | disposition home health service (06) | DRG 698 ==
LOC: ER 23:46 → ICU 09-24 00:58 → TELE1 09-24 01:41 → TELE-TD 09-24 02:30 → TELE1 09-24 09:20 → MEDSG1 09-26 08:52
PROVIDERS: ADMIT Nurse Practitioner Family; ATTEND Nurse Practitioner Family
PROC: 5A1D70Z Performance of Urinary Filtration, Intermittent, Less than 6 Hours Per Day (ICD-10-PCS; principal; 2024-09-24)
PROC: 5A09357 Assistance with Respiratory Ventilation, Less than 24 Consecutive Hours, Continuous Positive Airway Pressure (ICD-10-PCS; 2024-09-24)
PROC: 05PY33Z Removal of Infusion Device from Upper Vein, Percutaneous Approach (ICD-10-PCS; 2024-09-25)
PROC: 02HV33Z Insertion of Infusion Device into Superior Vena Cava, Percutaneous Approach (ICD-10-PCS; 2024-09-25)
PROC: B518YZA Fluoroscopy of Superior Vena Cava using Other Contrast, Guidance (ICD-10-PCS; 2024-09-25)
DX: T82.41XA Breakdown (mechanical) of vascular dialysis catheter, initial encounter (principal); I21.A1 Myocardial infarction type 2; J15.9 Unspecified bacterial pneumonia; I50.23 Acute on chronic systolic (congestive) heart failure; N18.6 End stage renal disease; J96.01 Acute respiratory failure with hypoxia; J96.02 Acute respiratory failure with hypercapnia; I13.2 Hypertensive heart and chronic kidney disease with heart failure and with stage 5 chronic kidney disease, or end stage renal disease; I16.1 Hypertensive emergency; E87.20 Acidosis, unspecified; Y84.8 Other medical procedures as the cause of abnormal reaction of the patient, or of later complication, without mention of misadventure at the time of the procedure; E87.5 Hyperkalemia; E11.22 Type 2 diabetes mellitus with diabetic chronic kidney disease; I25.10 Atherosclerotic heart disease of native coronary artery without angina pectoris; E11.65 Type 2 diabetes mellitus with hyperglycemia; D64.9 Anemia, unspecified; E66.01 Morbid (severe) obesity due to excess calories; E78.5 Hyperlipidemia, unspecified; E83.41 Hypermagnesemia; Z87.891 Personal history of nicotine dependence; Z99.2 Dependence on renal dialysis; G47.33 Obstructive sleep apnea (adult) (pediatric); J44.89 Other specified chronic obstructive pulmonary disease; Z68.36 Body mass index [BMI] 36.0-36.9, adult; Y81.8 Miscellaneous general- and plastic-surgery devices associated with adverse incidents, not elsewhere classified; Y92.009 Unspecified place in unspecified non-institutional (private) residence as the place of occurrence of the external cause
CPT/HCPCS: 36415; 36600; 71045-TC; 80048-TC; 80053-TC; 80076-TC; 80202-TC; 82010-TC; 82803-TC; 82962-TC; 83605-TC; 83735-TC; 83880; 84100-TC; 84484-TC; 85025-TC; 85610-TC; 85730-TC; 86706; 86850-TC; 87040-TC; 87081-TC; 87340; 90935-TC; 93307-TC; 93970-TC; 94799-TC; A4223; C1750; C1769; C1894; G0378; J0360; J0690; J0692; J0696; J1644; J1815; J1938; J2704; J2919; J2997; J3370; J3371; J3490; J7030; J7040; J7060; Q9967